=== PATIENT | female | born 1955 | race Hispanic/Latino ===

== ENCOUNTER → 2019-01-23 | Outpatient (CLI) | payer OTHER, MEDICARE | END | disposition home or self-care (01) | LOC: RAH 13:09 | PROVIDERS: ATTEND Family Medicine | DX: I70.203 Unspecified atherosclerosis of native arteries of extremities, bilateral legs (principal) | CPT/HCPCS: 93925 ==

== ENCOUNTER 2019-07-21 14:18 | Inpatient (IN) | payer OTHER, MEDICARE ==
[~2019-07-21] VITALS: Ht 160 cm; Wt 54.5 kg
[2019-07-21 14:56] LABS: BASOPHILS % (AUTO) 0.9 % (0.0-5.0); EOSINOPHILS % (AUTO) 0.3 % (0.0-8.0); HEMATOCRIT 31.5 % (36-48); LYMPHOCYTES % (AUTO) 8.8 % (21.0-51.0); MEAN CORPUSCULAR HEMOGLOBIN 28.7 pg (27.0-33.0); MEAN CORPUSCULAR HGB CONC 33.7 g/dL (32.0-36.0); MEAN CORPUSCULAR VOLUME 85.3 fL (79-99); MONOCYTES % (AUTO) 2.1 % (3.0-13.0); NEUTROPHILS % (AUTO) 87.9 % (40.0-77.0); PLATELET COUNT (AUTO) 423 K/uL (130-400); RED BLOOD CELL COUNT(AUTO) 3.69 MIL/uL (4.00-5.50); RED CELL DISTRIBUTION WIDTH 13.8 % (11.0-15.5)
[2019-07-21 15:05] LABS: INR 0.95 (0.85-1.15); PARTIAL THROMBOPLASTIN TIME 29.7 SEC (26.3-35.5)
[2019-07-21 15:06] LABS: CREATININE 1.2 mg/dL (0.5-1.5); POTASSIUM 3.7 mmol/L (3.5-5.1)
[2019-07-21] MEDS ORDERED: LEVOFLOXACIN 750 MG/D5W 150 ML 150 ML ONE (15:23)
[2019-07-21] MEDS ORDERED: INSULIN HUMULIN R 100 UNIT/ML 3ML ONE (15:49)
[2019-07-21] MEDS ORDERED: SODIUM CHLORIDE 0.9% 1000ML 1,000 ML IV ONE ×2 (15:50→21:55)
[2019-07-21] MEDS ORDERED: HYDRALAZINE HCL 20 MG/ML VIAL IV PRN (16:45)
[2019-07-21] MEDS ORDERED: MORPHINE SULFATE 4 MG/1ML SYG IV PRN (16:45)
[2019-07-21] MEDS ORDERED: MORPHINE SULFATE 2 MG/ML 1ML SYG IV PRN (16:45)
[2019-07-21] MEDS ORDERED: VANCOMYCIN PROTOCOL PER PHARMACY IV PRN (16:45)
[2019-07-21] MEDS: MEROPENEM 500 MG VIAL IV SCH (16:45)
[2019-07-21] MEDS: SODIUM CHLORIDE 0.9% 1000ML 1,000 ML IV SCH (16:45)
[2019-07-21] MEDS: INSULIN LISPRO 100 UNIT/ML 3ML SQ SCH ×2 (17:00→21:00)
[2019-07-21] MEDS: VANCOMYCIN 1GM+NS 250ML 250 ML IV SCH (18:00)
[2019-07-21] MEDS ORDERED: VANCOMYCIN 1GM+NS 250ML 250 ML IV ONE (18:03)
[2019-07-21 18:13] LABS: PHOSPHORUS 3.1 mg/dL (2.5-4.9)
[2019-07-21 18:15] LABS: HEMOGLOBIN A1C 10.4 % (4.0-6.0)
[2019-07-21] MEDS: METOPROLOL TARTRATE 25 MG TAB PO SCH (21:00)
[2019-07-21] MEDS: INSULIN GLARGINE 100 UNITS/ML 10 ML VIAL SQ SCH (21:00)
[2019-07-21] MEDS ORDERED: MEROPENEM 500 MG VIAL ONE (21:55)
[2019-07-21 22:40] VITALS: BP 147/67
--- NOTE | 2019-07-21 22:40 | NUR ---
ADMISSION PT TRANSFERRED FROM ER VIA STRETCHER. PT AWAKE, ALERT AND RESPONSIVE, PT DAUGHTER AT BEDSIDE, PT IS LEGALLY BLIND UNABLE TO SEE. WOUND TO LEFT FOOT OBSERVED AND DRESSED, NO C/O PAIN OR DISCOMFORT AT THIS TIME. PT AND DAUGHTER ORIENTED TO ROOM, RAFAL KATHLEEN DOTS NURSE BUTTON RADIO REPAIRER FREITAS REMOTE IDENTIFIED BY PATIENT, VERBALIZED UNDERSTANDING TO USE CALL BUT FOR ASSISTANCE. BED LEFT IN LOWEST POSITION. Addendum: 07/21/19 at 2305 by NOREEN HAMLIN RN Amended: Links added.
[2019-07-21] MEDS ORDERED: LEVO100T12 PO (23:22)
[2019-07-21] MEDS ORDERED: INSU100V12 SQ (23:22)
[2019-07-21] MEDS ORDERED: ROSU10TA28 PO (23:22)
[2019-07-21] MEDS ORDERED: INSU100V SQ (23:22)
[2019-07-21] MEDS ORDERED: LISI10TA7 PO (23:22)
[2019-07-22] MEDS: MEROPENEM 500 MG VIAL IV SCH ×3 (00:33→16:04)
[2019-07-22] MEDS: SODIUM CHLORIDE 0.9% 1000ML 1,000 ML IV SCH ×3 (02:00→21:31)
[2019-07-22 03:00] VITALS: BP 124/59
[2019-07-22] MEDS: INSULIN LISPRO 100 UNIT/ML 3ML SQ SCH ×7 (07:33→21:00)
[2019-07-22 08:08] VITALS: BP 124/59
--- NOTE | 2019-07-22 08:10 | NUR ---
MET W PATIENT SHAN DE LEON IMPAIRED, AAOX3, VERY SOFT VOICE, A LITTLE DIFFICULT TO UNDERSTAND. STATS LIVES W HER DAUGHTER ARTHUR WHO WILL PROVIDE TRANSPORT, CANNOT REMEMBER ANY PONE RAMIREZ TO VERIFY FACE SHEET ADIVSE HER THAT WITH THE KIND OF INFECTION SHE HAS IF IT LIKEL THAT SHE WILL NEED TO GO TO A FACILITY FOR ABX AND WOUNDCARE- PT STATES UNDERSTANDS AND AGREES. CALL TO DAUGHTER NATASHA, PERSON TO NOTIFY ON FACE SHEET-NO ANSWER Addendum: 07/23/19 at 1604 by MEMO RENTERIA RN Amended: Links added.
[2019-07-22] MEDS: ENOXAPARIN SODIUM 30 MG/0.3 ML SQ SCH (10:08)
[2019-07-22] MEDS: METOPROLOL TARTRATE 25 MG TAB PO SCH ×2 (10:08→21:26)
[2019-07-22] MEDS: FAMOTIDINE/PF 20 MG/2 ML VIAL IV SCH (10:08)
[2019-07-22 11:35] VITALS: BP 123/62
[2019-07-22 14:37] LABS: CREATININE 0.9 mg/dL (0.5-1.5); POTASSIUM 4.2 mmol/L (3.5-5.1)
[2019-07-22] MEDS ORDERED: DIPH,PERTUSS(ACELL),TET VAC/PF 0.5 ML VIAL IM ONE (16:15)
[2019-07-22 16:25] VITALS: BP 115/54
[2019-07-22] MEDS: VANCOMYCIN 1GM+NS 250ML 250 ML IV SCH (16:43)
[2019-07-22 19:32] VITALS: BP 129/63
[2019-07-22] MEDS: ATORVASTATIN CALCIUM 20 MG TABLET PO SCH (21:26)
[2019-07-22] MEDS: INSULIN GLARGINE 100 UNITS/ML 10 ML VIAL SQ SCH (21:31)
[2019-07-22 23:16] VITALS: BP 132/61
[2019-07-23] MEDS: MEROPENEM 500 MG VIAL IV SCH ×3 (01:16→18:19)
[2019-07-23 03:41] VITALS: BP 115/56
[2019-07-23 05:15] LABS: BASOPHILS % (AUTO) 0.9 % (0.0-5.0); EOSINOPHILS % (AUTO) 1.2 % (0.0-8.0); HEMATOCRIT 25.4 % (36-48); LYMPHOCYTES % (AUTO) 23.5 % (21.0-51.0); MEAN CORPUSCULAR HEMOGLOBIN 29.1 pg (27.0-33.0); MEAN CORPUSCULAR HGB CONC 33.6 g/dL (32.0-36.0); MEAN CORPUSCULAR VOLUME 86.6 fL (79-99); MONOCYTES % (AUTO) 7.8 % (3.0-13.0); NEUTROPHILS % (AUTO) 66.6 % (40.0-77.0); PLATELET COUNT (AUTO) 314 K/uL (130-400); RED BLOOD CELL COUNT(AUTO) 2.94 MIL/uL (4.00-5.50); RED CELL DISTRIBUTION WIDTH 14.1 % (11.0-15.5); WHITE BLOOD COUNT (AUTO) 12.8 K/uL (4.8-10.8)
[2019-07-23 05:35] LABS: ALBUMIN 2.1 g/dL (3.5-5.0); BILIRUBIN,TOTAL 0.1 mg/dL (0.2-1.0); POTASSIUM 3.8 mmol/L (3.5-5.1); TOTAL PROTEIN, SERUM 6.9 g/dL (6.0-8.3)
[2019-07-23] MEDS: LEVOTHYROXINE 100 MCG TABLET PO SCH ×2 (06:50→12:08)
[2019-07-23] MEDS: INSULIN LISPRO 100 UNIT/ML 3ML SQ SCH ×7 (07:30→21:08)
[2019-07-23 07:37] VITALS: BP 105/59
[2019-07-23] MEDS: SODIUM CHLORIDE 0.9% 1000ML 1,000 ML IV SCH (08:45)
[2019-07-23] MEDS: FAMOTIDINE/PF 20 MG/2 ML VIAL IV SCH (09:12)
[2019-07-23] MEDS ORDERED: IOHEXOL-350 50ML VIAL IV ONE (09:28)
[2019-07-23] MEDS ORDERED: IOHEXOL-350 75 ML VIAL IV ONE (09:29)
[2019-07-23 11:32] VITALS: BP 114/54
[2019-07-23] MEDS: LISINOPRIL 10 MG TABLET PO SCH (12:08)
[2019-07-23] MEDS: METOPROLOL TARTRATE 25 MG TAB PO SCH ×2 (12:08→21:06)
[2019-07-23] MEDS: ENOXAPARIN SODIUM 30 MG/0.3 ML SQ SCH (12:09)
[2019-07-23 15:54] VITALS: BP 141/73
--- NOTE | 2019-07-23 16:04 | NUR ---
REFERRAL REVIEWED SPOKE TO PT AGAIN ABOUT PLACEMENT, WOULD LIKE DAUGHTER TO MAKE DECISION, CALL TO BOTH DAUGHTERS, NO ANSWER, LEFT MESSAGE WITH ARTHUR, AWAITING CALL BACK CALL TO DAUGHTER ON THE PATIENTS PHONE, DECIDED ON FAMILY REQUESTING VAN RODRIGUEZ INITIATED AND CALL STEPHANIE AT [facility] Addendum: 07/23/19 at 1620 by MEMO RENTERIA RN CM Amended: Links added.
--- NOTE | 2019-07-23 16:30 | NUR ---
PAGED DR WOLFE THRU ANSWERING SERVICE REGARDING CT ANGIO W/RUNOFF RESULT AND TO LET HIM KNOW DR ORTIZ CANCELLED TMA FOR TOMORROW DUE TO ABDNORMAL CT ANGIO . PENDING CALL BACK
--- NOTE | 2019-07-23 17:05 | NUR ---
REFERRAL SENT AND JUNIOR MET W PATIENT, ALL INFO TO DATE INCLUDING PASSR GIVEN TO JUNIOR. JUNIOR STATES WILL AWAIT TILL AFTER INTERVENTION ON FOOT
[2019-07-23] MEDS: VANCOMYCIN 1GM+NS 250ML 250 ML IV SCH (18:14)
--- NOTE | 2019-07-23 18:52 | NUR ---
CALL BACK FROM DR WOLFE INFORMED HIM OF CTA RESULTS .PER MD TO NPO AFTER MIDNIGHT IN CASE FURTHER TESTING .ALSO LET HIM KNOW TMA WITH VENAGAS CANCELLED UNTIL CARDIAC WORKUP
[2019-07-23 19:32] VITALS: BP 143/72
[2019-07-23] MEDS: ATORVASTATIN CALCIUM 20 MG TABLET PO SCH (21:06)
[2019-07-23] MEDS: INSULIN GLARGINE 100 UNITS/ML 10 ML VIAL SQ SCH (21:08)
[2019-07-23 23:14] VITALS: BP 144/68
[2019-07-24] MEDS: SODIUM CHLORIDE 0.9% 1000ML 1,000 ML IV SCH (01:32)
[2019-07-24] MEDS: MEROPENEM 500 MG VIAL IV SCH ×3 (01:33→16:05)
[2019-07-24 04:04] VITALS: BP 112/55
[2019-07-24 05:21] LABS: BASOPHILS % (AUTO) 0.8 % (0.0-5.0); EOSINOPHILS % (AUTO) 2.1 % (0.0-8.0); HEMATOCRIT 26.2 % (36-48); LYMPHOCYTES % (AUTO) 26.2 % (21.0-51.0); MEAN CORPUSCULAR HEMOGLOBIN 28.2 pg (27.0-33.0); MEAN CORPUSCULAR HGB CONC 33.2 g/dL (32.0-36.0); MEAN CORPUSCULAR VOLUME 85.1 fL (79-99); MONOCYTES % (AUTO) 8.5 % (3.0-13.0); NEUTROPHILS % (AUTO) 62.4 % (40.0-77.0); PLATELET COUNT (AUTO) 357 K/uL (130-400); RED BLOOD CELL COUNT(AUTO) 3.07 MIL/uL (4.00-5.50); WHITE BLOOD COUNT (AUTO) 11.9 K/uL (4.8-10.8)
[2019-07-24 05:49] LABS: POTASSIUM 3.5 mmol/L (3.5-5.1)
--- NOTE | 2019-07-24 06:19 | NUR ---
paged paged Dr. Tavarez for hypokalemia protocol order due to potassium of 3.5. pending call back.
[2019-07-24] MEDS: INSULIN LISPRO 100 UNIT/ML 3ML SQ SCH ×4 (06:21→17:07)
[2019-07-24 08:00] VITALS: BP 103/57
--- NOTE | 2019-07-24 08:00 | NUR ---
DR SANDOVAL VISITED WITH PATIENT. POC DISCUSSED. ANGIOGRAM TO BE SCHEDULED ON 07/27.
--- NOTE | 2019-07-24 08:30 | NUR ---
DR ORTIZ CALLED BACK. SX CANCELLED FOR TODAY. WAIT ON ANGIOGRAM RESULTS TO RE-SCHEDULE SX.
[2019-07-24] MEDS: ENOXAPARIN SODIUM 30 MG/0.3 ML SQ SCH (09:20)
[2019-07-24] MEDS: METOPROLOL TARTRATE 25 MG TAB PO SCH ×2 (09:20→20:07)
[2019-07-24] MEDS: LISINOPRIL 10 MG TABLET PO SCH (09:20)
[2019-07-24] MEDS: FAMOTIDINE/PF 20 MG/2 ML VIAL IV SCH (09:20)
[2019-07-24 12:00] VITALS: BP 101/52
[2019-07-24] MEDS: INSULIN HUMULIN R 100 UNIT/ML 3ML SQ SCH ×3 (12:22→21:09)
[2019-07-24 16:00] VITALS: BP 142/69
[2019-07-24] MEDS: VANCOMYCIN 1GM+NS 250ML 250 ML IV SCH (17:03)
[2019-07-24] MEDS ORDERED: LIDOCAINE HCL-MPF 1% 2ML VIAL IV PRN (19:00)
[2019-07-24] MEDS ORDERED: POTASSIUM CHLORIDE 20MEQ/100ML 100 ML IV PRN (19:00)
[2019-07-24] MEDS ORDERED: POTASSIUM CHLORIDE 10% ELIXIR 20 MEQ/15 ML UDCUP PO PRN (19:00)
[2019-07-24 19:34] VITALS: BP 141/62
[2019-07-24] MEDS: ATORVASTATIN CALCIUM 20 MG TABLET PO SCH (20:07)
[2019-07-24] MEDS: POTASSIUM CHLORIDE 20 MEQ ERTAB PO PRN (20:07)
[2019-07-24] MEDS: INSULIN GLARGINE 100 UNITS/ML 10 ML VIAL SQ SCH (21:08)
--- NOTE | 2019-07-24 21:54 | NUR ---
wound care betadine cast applied on left great toe after cleaning with saline and 4 x 4's. Left toe necrotic and sorrounding area on the rest of toes is black, hard, and odorous. Patient not in pain. Able to tolerate dressing change.
--- NOTE | 2019-07-24 23:30 | NUR ---
MD catina Clark paged for high temperature of patient of 100.32, blood pressure of 107/43, and suspect of sepsis. She ordered urine culture, blood culture x 1, lactated ringer bolus, and acetaminophen 650 mg prn for fever.
[2019-07-24] MEDS ORDERED: ACETAMINOPHEN 325 MG TAB PO PRN (23:45)
[2019-07-25] VITALS (7 sets, daily range): BP systolic 107–149; BP diastolic 43–72
[2019-07-25] MEDS ORDERED: LACTATED RINGERS 1000ML 1,000 ML IV ONE (00:14)
[2019-07-25] MEDS ORDERED: ACETAMINOPHEN 325 MG TAB ONE (00:14)
[2019-07-25] MEDS: POTASSIUM CHLORIDE 20 MEQ ERTAB PO PRN (00:16)
[2019-07-25] MEDS: MEROPENEM 500 MG VIAL IV SCH ×3 (00:17→16:46)
--- NOTE | 2019-07-25 01:16 | NUR ---
Hospitalist paged Informed Domonique Collin about patient's lactic acid level of 1.6, her temperature of 99.6, and current bolusing. pending urine and blood culture results
[2019-07-25 05:19] LABS: BASOPHILS % (AUTO) 0.7 % (0.0-5.0); EOSINOPHILS % (AUTO) 2.2 % (0.0-8.0); HEMATOCRIT 24.3 % (36-48); LYMPHOCYTES % (AUTO) 28.1 % (21.0-51.0); MEAN CORPUSCULAR HEMOGLOBIN 28.6 pg (27.0-33.0); MEAN CORPUSCULAR HGB CONC 33.8 g/dL (32.0-36.0); MEAN CORPUSCULAR VOLUME 84.7 fL (79-99); MONOCYTES % (AUTO) 9.3 % (3.0-13.0); NEUTROPHILS % (AUTO) 59.7 % (40.0-77.0); PLATELET COUNT (AUTO) 339 K/uL (130-400); POTASSIUM 3.7 mmol/L (3.5-5.1); RED BLOOD CELL COUNT(AUTO) 2.86 MIL/uL (4.00-5.50); RED CELL DISTRIBUTION WIDTH 13.7 % (11.0-15.5); WHITE BLOOD COUNT (AUTO) 12.6 K/uL (4.8-10.8)
[2019-07-25] MEDS: LEVOTHYROXINE 100 MCG TABLET PO SCH (06:10)
[2019-07-25] MEDS: INSULIN HUMULIN R 100 UNIT/ML 3ML SQ SCH ×4 (06:11→20:53)
[2019-07-25] MEDS: LACTATED RINGERS 1000ML 1,000 ML IV SCH ×2 (06:25→13:05)
[2019-07-25] MEDS: INSULIN LISPRO 100 UNIT/ML 3ML SQ SCH ×3 (08:10→16:49)
[2019-07-25] MEDS: METOPROLOL TARTRATE 25 MG TAB PO SCH ×2 (09:27→20:51)
[2019-07-25] MEDS: LISINOPRIL 10 MG TABLET PO SCH (09:27)
[2019-07-25] MEDS: FAMOTIDINE/PF 20 MG/2 ML VIAL IV SCH (09:27)
[2019-07-25] MEDS: ASPIRIN 81MG TAB.CHEW PO SCH (09:27)
[2019-07-25] MEDS: ENOXAPARIN SODIUM 30 MG/0.3 ML SQ SCH (09:28)
[2019-07-25] MEDS: VANCOMYCIN 1GM+NS 250ML 250 ML IV SCH (20:50)
[2019-07-25] MEDS: ATORVASTATIN CALCIUM 20 MG TABLET PO SCH (20:51)
[2019-07-25] MEDS: INSULIN GLARGINE 100 UNITS/ML 10 ML VIAL SQ SCH (20:52)
[2019-07-26] MEDS: MEROPENEM 500 MG VIAL IV SCH ×3 (01:26→17:01)
[2019-07-26 03:00] VITALS: BP 141/65
[2019-07-26 05:17] LABS: BASOPHILS % (AUTO) 0.5 % (0.0-5.0); EOSINOPHILS % (AUTO) 2.4 % (0.0-8.0); HEMATOCRIT 24.1 % (36-48); LYMPHOCYTES % (AUTO) 26.3 % (21.0-51.0); MEAN CORPUSCULAR HEMOGLOBIN 29.1 pg (27.0-33.0); MEAN CORPUSCULAR HGB CONC 34.6 g/dL (32.0-36.0); MEAN CORPUSCULAR VOLUME 84.2 fL (79-99); MONOCYTES % (AUTO) 9.1 % (3.0-13.0); NEUTROPHILS % (AUTO) 61.7 % (40.0-77.0); PLATELET COUNT (AUTO) 347 K/uL (130-400); RED BLOOD CELL COUNT(AUTO) 2.86 MIL/uL (4.00-5.50); WHITE BLOOD COUNT (AUTO) 12.9 K/uL (4.8-10.8)
[2019-07-26 05:33] LABS: CREATININE 0.8 mg/dL (0.5-1.5); POTASSIUM 3.6 mmol/L (3.5-5.1)
[2019-07-26] MEDS: LEVOTHYROXINE 100 MCG TABLET PO SCH (06:45)
[2019-07-26] MEDS: INSULIN HUMULIN R 100 UNIT/ML 3ML SQ SCH ×4 (06:46→22:16)
[2019-07-26] MEDS: INSULIN LISPRO 100 UNIT/ML 3ML SQ SCH ×3 (06:46→17:09)
[2019-07-26 08:00] VITALS: BP 113/56
[2019-07-26] MEDS: LISINOPRIL 10 MG TABLET PO SCH (09:37)
[2019-07-26] MEDS: ASPIRIN 81MG TAB.CHEW PO SCH (09:37)
[2019-07-26] MEDS: METOPROLOL TARTRATE 25 MG TAB PO SCH ×2 (09:37→22:14)
[2019-07-26] MEDS: FAMOTIDINE/PF 20 MG/2 ML VIAL IV SCH (09:38)
[2019-07-26] MEDS: ENOXAPARIN SODIUM 30 MG/0.3 ML SQ SCH (09:38)
[2019-07-26] MEDS: VANCOMYCIN 1GM+NS 250ML 250 ML IV SCH ×2 (09:38→22:14)
[2019-07-26 11:45] VITALS: BP 101/52
[2019-07-26 16:00] VITALS: BP 130/64
[2019-07-26] MEDS ORDERED: ACETAMINOPHEN 325 MG TAB PO PRN (16:00)
--- NOTE | 2019-07-26 19:49 | NUR ---
WOUND CARE DONE BETADINE CAST APPLIED TO LEFT FOOT. PATIENT TOLERATED WELL.
[2019-07-26 19:58] VITALS: BP 116/62
[2019-07-26] MEDS: ATORVASTATIN CALCIUM 20 MG TABLET PO SCH (22:14)
[2019-07-26] MEDS: INSULIN GLARGINE 100 UNITS/ML 10 ML VIAL SQ SCH (22:15)
[2019-07-26 23:37] VITALS: BP 121/56
[2019-07-27] VITALS (13 sets, daily range): BP systolic 78–125; BP diastolic 39–71
[2019-07-27] MEDS: MEROPENEM 500 MG VIAL IV SCH ×3 (01:17→18:11)
[2019-07-27 06:05] LABS: BASOPHILS % (AUTO) 1.1 % (0.0-5.0); EOSINOPHILS % (AUTO) 2.9 % (0.0-8.0); HEMATOCRIT 26.7 % (36-48); LYMPHOCYTES % (AUTO) 20.4 % (21.0-51.0); MEAN CORPUSCULAR HEMOGLOBIN 29.5 pg (27.0-33.0); MEAN CORPUSCULAR HGB CONC 34.4 g/dL (32.0-36.0); MEAN CORPUSCULAR VOLUME 85.6 fL (79-99); MONOCYTES % (AUTO) 10.2 % (3.0-13.0); NEUTROPHILS % (AUTO) 65.4 % (40.0-77.0); PLATELET COUNT (AUTO) 344 K/uL (130-400); RED BLOOD CELL COUNT(AUTO) 3.12 MIL/uL (4.00-5.50); WHITE BLOOD COUNT (AUTO) 14.3 K/uL (4.8-10.8)
[2019-07-27 06:13] LABS: CREATININE 0.9 mg/dL (0.5-1.5); PARTIAL THROMBOPLASTIN TIME 28.7 SEC (26.3-35.5); PROTHROMBIN TIME 10.5 SEC (9.6-11.6)
[2019-07-27] MEDS: LEVOTHYROXINE 100 MCG TABLET PO SCH (06:34)
[2019-07-27] MEDS: INSULIN HUMULIN R 100 UNIT/ML 3ML SQ SCH ×4 (06:34→21:00)
[2019-07-27] MEDS: INSULIN LISPRO 100 UNIT/ML 3ML SQ SCH ×3 (06:34→17:00)
[2019-07-27] MEDS: ASPIRIN 81MG TAB.CHEW PO SCH (09:00)
[2019-07-27] MEDS: METOPROLOL TARTRATE 25 MG TAB PO SCH ×2 (09:00→21:49)
[2019-07-27] MEDS: LISINOPRIL 10 MG TABLET PO SCH (09:00)
[2019-07-27] MEDS: FAMOTIDINE/PF 20 MG/2 ML VIAL IV SCH (09:00)
[2019-07-27] MEDS: VANCOMYCIN 1GM+NS 250ML 250 ML IV SCH ×2 (09:26→21:48)
[2019-07-27] MEDS ORDERED: HEPARIN SODIUM 1000UNIT/ML 10ML VIAL ONE ×2 (13:42→16:12)
[2019-07-27] MEDS ORDERED: BIVALIRUDIN 250 MG/VIAL IV ONE (13:42)
[2019-07-27] MEDS ORDERED: FENTANYL CITRATE PF 50 MCG/1 ML 2ML VIAL ONE (13:43)
[2019-07-27] MEDS ORDERED: IODIXANOL 320 MG/ML 100 ML VIAL ONE (13:43)
[2019-07-27] MEDS ORDERED: MIDAZOLAM HCL 1 MG/ML 2ML VIAL ONE (13:43)
[2019-07-27] MEDS ORDERED: LIDOCAINE HCL 2% 20ML ONE (13:43)
[2019-07-27] MEDS ORDERED: NITROGLYCERIN 5 MG/ML 10 ML VIAL IV ONE (13:43)
--- NOTE | 2019-07-27 14:27 | NUR ---
FOLLOWED UP WITH REFERRAL- WILL SEND UPDATES TODAY , FOR ANGIOGRAM
[2019-07-27] MEDS ORDERED: NICARDIPINE HCL 25 MG/10 ML ML IV ONE (14:32)
[2019-07-27] MEDS ORDERED: CLOPIDOGREL BISULFATE 300 MG TAB ONE (16:19)
[2019-07-27] MEDS ORDERED: ASPIRIN 325MG EC TAB 325 MG TABLET.DR PO ONE (16:20)
--- NOTE | 2019-07-27 17:44 | NUR ---
Nutrition Intervention: Nutrition screen based on LOS x 6 days. Pt. not in room during RD visit- out for procedure. Pt. on 75gm CCD Low Lactose Heart healthy diet with good p.o.intake, as noted in EMR. Labs reviewed(Alb 2.1, HgbA1c 10.4%). LBM: 07/25/19. SR-18, left great toe gangrene. Recommendations: 1) Rec. 30ml ProMod TID with meals. 2) Continue to monitor pt's nutritional status. 3) Consult RD as nutrition concerns arise. Addendum: 07/27/19 at [address] Amended: Links added.
[2019-07-27] MEDS: ATORVASTATIN CALCIUM 20 MG TABLET PO SCH (21:49)
[2019-07-27] MEDS: INSULIN GLARGINE 100 UNITS/ML 10 ML VIAL SQ SCH (21:50)
[2019-07-28] MEDS: MEROPENEM 500 MG VIAL IV SCH ×3 (01:02→16:39)
[2019-07-28 03:00] VITALS: BP 113/56
[2019-07-28] MEDS: LEVOTHYROXINE 100 MCG TABLET PO SCH (06:25)
[2019-07-28] MEDS: INSULIN LISPRO 100 UNIT/ML 3ML SQ SCH ×3 (06:26→16:46)
[2019-07-28] MEDS: INSULIN HUMULIN R 100 UNIT/ML 3ML SQ SCH ×4 (06:27→21:40)
[2019-07-28 07:15] LABS: HEMATOCRIT 22.4 % (36-48); MEAN CORPUSCULAR HEMOGLOBIN 28.3 pg (27.0-33.0); MEAN CORPUSCULAR HGB CONC 33.3 g/dL (32.0-36.0); PLATELET COUNT (AUTO) 332 K/uL (130-400); RED BLOOD CELL COUNT(AUTO) 2.64 MIL/uL (4.00-5.50); RED CELL DISTRIBUTION WIDTH 14.3 % (11.0-15.5)
[2019-07-28 07:33] LABS: POTASSIUM 3.7 mmol/L (3.5-5.1)
[2019-07-28 08:00] VITALS: BP 102/53
[2019-07-28] MEDS: ASPIRIN 81MG TAB.CHEW PO SCH (08:54)
[2019-07-28] MEDS: METOPROLOL TARTRATE 25 MG TAB PO SCH ×2 (08:54→21:36)
[2019-07-28] MEDS: FAMOTIDINE/PF 20 MG/2 ML VIAL IV SCH (08:54)
[2019-07-28] MEDS: LISINOPRIL 10 MG TABLET PO SCH (08:54)
[2019-07-28] MEDS: CLOPIDOGREL BISULFATE 75 MG TAB PO SCH (08:54)
--- NOTE | 2019-07-28 09:26 | NUR ---
paged dr. goncalves to notify him that the angioplasty was done.
[2019-07-28 12:00] VITALS: BP 110/56
--- NOTE | 2019-07-28 15:39 | NUR ---
SPOKE TO DR. ORTIZ ON THE PHONE AND NOTIFIED HIM OF THE ANGIOPLASTY. HE VERBALIZED THAT HE WILL TALK TO THE PATIENT AND THE FAMILY ABOUT THE POSSIBLE TMA ON MONDAY 07/30.
[2019-07-28 16:00] VITALS: BP 102/53
[2019-07-28 19:56] VITALS: BP 95/45
[2019-07-28] MEDS: ATORVASTATIN CALCIUM 20 MG TABLET PO SCH (21:36)
[2019-07-28] MEDS: INSULIN GLARGINE 100 UNITS/ML 10 ML VIAL SQ SCH (21:40)
[2019-07-28 23:19] VITALS: BP 108/48
[2019-07-29] MEDS: MEROPENEM 500 MG VIAL IV SCH ×3 (01:56→18:22)
[2019-07-29 03:35] VITALS: BP 114/52
[2019-07-29] MEDS: INSULIN LISPRO 100 UNIT/ML 3ML SQ SCH ×3 (07:30→18:19)
[2019-07-29] MEDS: INSULIN HUMULIN R 100 UNIT/ML 3ML SQ SCH ×4 (07:30→21:53)
[2019-07-29 08:16] VITALS: BP 111/48
[2019-07-29] MEDS: CLOPIDOGREL BISULFATE 75 MG TAB PO SCH (09:00)
[2019-07-29] MEDS ORDERED: MORPHINE SULFATE 2 MG/ML 1ML SYG IV PRN (09:30)
[2019-07-29] MEDS ORDERED: MORPHINE SULFATE 4 MG/1ML SYG IV PRN (09:30)
[2019-07-29] MEDS: LEVOTHYROXINE 100 MCG TABLET PO SCH (11:16)
[2019-07-29] MEDS: LISINOPRIL 10 MG TABLET PO SCH (11:17)
[2019-07-29] MEDS: ASPIRIN 81MG TAB.CHEW PO SCH (11:18)
[2019-07-29] MEDS: METOPROLOL TARTRATE 25 MG TAB PO SCH (11:18)
[2019-07-29] MEDS: FAMOTIDINE/PF 20 MG/2 ML VIAL IV SCH (11:18)
--- NOTE | 2019-07-29 11:59 | NUR ---
pt with n/v dr. Remigio turpin.
[2019-07-29 12:00] VITALS: BP 103/55
[2019-07-29] MEDS: VANCOMYCIN 1GM+NS 250ML 250 ML IV SCH (14:59)
[2019-07-29] MEDS ORDERED: ONDANSETRON HCL 4 MG/2 ML VIAL ONE (15:04)
--- NOTE | 2019-07-29 16:45 | NUR ---
dr. campbell aware of h/h 6.6.4/19.3 states to transfuse 2u prbcs wit vincentix
[2019-07-29 17:50] VITALS: BP 94/56
[2019-07-29 17:58] LABS: HEMATOCRIT 19.3 % (36-48)
[2019-07-29] MEDS: SODIUM CHLORIDE 0.9% 1000ML 1,000 ML IV SCH (18:22)
[2019-07-29 19:44] VITALS: BP 97/58
[2019-07-29] MEDS ORDERED: FUROSEMIDE 10 MG/ML 2ML VIAL IV SCH (21:15)
[2019-07-29] MEDS: ATORVASTATIN CALCIUM 20 MG TABLET PO SCH (21:51)
[2019-07-29] MEDS: INSULIN GLARGINE 100 UNITS/ML 10 ML VIAL SQ SCH (21:52)
[2019-07-29 23:34] VITALS: BP 98/61
[2019-07-30] VITALS (25 sets, daily range): BP systolic 85–145; BP diastolic 50–78
--- NOTE | 2019-07-30 00:25 | NUR ---
PATIENT S/P 1 UNIT PRBC. POST-TRANSFUSION VITALS: TEMP 98.6, RESP 16, HEART RATE 82, O2 SAT ROOM AIR 96%, B/P 88/54. [employer] CORT[employer] WELL SERVICING RIG OPERATOR WAS PAGED REGARDING LOW B/P, PENDING CALL BACK
--- NOTE | 2019-07-30 01:45 | NUR ---
SOPHIA, EMULSION OPERATOR MADE AWARE OF EPISODES OF LOW B/P AND MOST RECENT B/P OF /. SECOND BAG OF PRBC CURRENTLY TRANSFUSION. EMULSION OPERATOR STATED TO KEEP MONITORING B/P AND TO NOTIFY HER IF PATIENT CONTINUES WITH LOW B/P.
[2019-07-30] MEDS: MEROPENEM 500 MG VIAL IV SCH ×3 (01:47→17:37)
[2019-07-30] MEDS: SODIUM CHLORIDE 0.9% 1000ML 1,000 ML IV SCH ×2 (02:45→17:39)
[2019-07-30] MEDS: VANCOMYCIN 1GM+NS 250ML 250 ML IV SCH ×2 (03:33→17:42)
[2019-07-30 05:18] LABS: HEMATOCRIT 28.6 % (36-48); MEAN CORPUSCULAR HGB CONC 33.8 g/dL (32.0-36.0); MEAN CORPUSCULAR VOLUME 85.9 fL (79-99); PLATELET COUNT (AUTO) 308 K/uL (130-400); RED BLOOD CELL COUNT(AUTO) 3.33 MIL/uL (4.00-5.50); RED CELL DISTRIBUTION WIDTH 13.7 % (11.0-15.5); WHITE BLOOD COUNT (AUTO) 16.1 K/uL (4.8-10.8)
[2019-07-30 05:34] LABS: CREATININE 1.4 mg/dL (0.5-1.5)
[2019-07-30] MEDS: INSULIN LISPRO 100 UNIT/ML 3ML SQ SCH ×3 (06:18→17:00)
[2019-07-30] MEDS: INSULIN HUMULIN R 100 UNIT/ML 3ML SQ SCH ×4 (06:18→21:00)
[2019-07-30] MEDS: LEVOTHYROXINE 100 MCG TABLET PO SCH (06:18)
[2019-07-30] MEDS: FAMOTIDINE/PF 20 MG/2 ML VIAL IV SCH (10:07)
--- NOTE | 2019-07-30 10:55 | NUR ---
1050- per CORAZON Guo-patient is schedule for Left Transmetatarsal Amputation today.Will Hold PT Re-evaluation today.Will notify Dr.Cesar Flood,regarding patient's procedure today. Addendum: 07/30/19 at 1103 by STEVAN BAKER, PT PT Amended: Links added.
[2019-07-30] MEDS ORDERED: BUPIVACAINE/PF 0.5% 30ML VIAL ONE (11:41)
[2019-07-30] MEDS ORDERED: LIDOCAINE HCL 1% 20 ML VIAL ONE (11:41)
[2019-07-30] MEDS: ONDANSETRON HCL 4 MG/2 ML VIAL IVP PRN (12:38)
--- NOTE | 2019-07-30 13:00 | NUR ---
DISCHARGE PLANNING CASE DISCUSSED WITH DR. AYALA- PT WILL NEED PICC LINE FOR AM AND PT/INR. PLAN FOR DC TO FACILITY FOR COMPLETION OF IV ABX WHEN CLEARED BY DR. AMIN. ORDER FOR PICC FOR AM GIVEN
[2019-07-30] MEDS ORDERED: LIDOCAINE PF 2% 5ML ABBOJECT ONE (13:03)
[2019-07-30] MEDS ORDERED: PROPOFOL 10 MG/ML 20ML VIAL IV ONE ×2 (13:03)
[2019-07-30] MEDS ORDERED: EPHEDRINE SULFATE 50 MG/ML AMPULE ONE (13:26)
--- NOTE | 2019-07-30 14:42 | NUR ---
RETURNED FROM OR S/P LEFT TMA BY DR. ORTIZ. SLEEPY, BUT AROUSABLE. VSS. LEFT FOOT SURGICAL SITE ACEWRAPPED, NO DRAINAGE NOTED.
--- NOTE | 2019-07-30 20:25 | NUR ---
SCHEDULED INSULIN AT 1700 WAS NOT GIVEN. PT WAS FRESH POST OP, AND DID NOT EAT. BGL WAS 142
[2019-07-30] MEDS: ATORVASTATIN CALCIUM 20 MG TABLET PO SCH (22:35)
[2019-07-30] MEDS: INSULIN GLARGINE 100 UNITS/ML 10 ML VIAL SQ SCH (22:39)
[2019-07-31] VITALS: BP 145/73
[2019-07-31] MEDS: SODIUM CHLORIDE 0.9% 1000ML 1,000 ML IV SCH (02:03)
[2019-07-31] MEDS: MEROPENEM 500 MG VIAL IV SCH ×3 (02:05→17:21)
[2019-07-31 04:00] VITALS: BP 135/60
[2019-07-31] MEDS ORDERED: VANCOMYCIN PROTOCOL PER PHARMACY IV PRN (05:00)
[2019-07-31] MEDS: VANCOMYCIN 1GM+NS 250ML 250 ML IV SCH ×3 (05:03→21:53)
[2019-07-31] MEDS ORDERED: MAG HYDROX/AL HYDROX/SIMETH ES 30 ML SUSP UDCUP ONE (05:48)
[2019-07-31 05:51] LABS: HEMATOCRIT 32.8 % (36-48); MEAN CORPUSCULAR HGB CONC 33.2 g/dL (32.0-36.0); MEAN CORPUSCULAR VOLUME 87.3 fL (79-99); NUCLEATED RED BLOOD CELLS 0.1 % (0.0-0.19); PLATELET COUNT (AUTO) 336 K/uL (130-400); RED BLOOD CELL COUNT(AUTO) 3.76 MIL/uL (4.00-5.50); RED CELL DISTRIBUTION WIDTH 14.2 % (11.0-15.5); WHITE BLOOD COUNT (AUTO) 20.6 K/uL (4.8-10.8)
[2019-07-31 05:58] LABS: POTASSIUM 4.1 mmol/L (3.5-5.1)
[2019-07-31 06:03] LABS: INR 1.06 (0.85-1.15); PROTHROMBIN TIME 11.1 SEC (9.6-11.6)
[2019-07-31] MEDS: INSULIN HUMULIN R 100 UNIT/ML 3ML SQ SCH ×4 (06:45→21:00)
[2019-07-31 07:00] VITALS: BP 124/64
[2019-07-31] MEDS: INSULIN LISPRO 100 UNIT/ML 3ML SQ SCH ×3 (08:21→17:21)
[2019-07-31] MEDS: LEVOTHYROXINE 100 MCG TABLET PO SCH (08:53)
[2019-07-31] MEDS: FAMOTIDINE/PF 20 MG/2 ML VIAL IV SCH (08:54)
[2019-07-31 11:00] VITALS: BP 141/73
[2019-07-31] MEDS: ASPIRIN 81 MG EC TAB PO SCH (12:14)
[2019-07-31] MEDS: ONDANSETRON HCL 4 MG/2 ML VIAL IVP PRN (12:14)
[2019-07-31 16:00] VITALS: BP 108/63
--- NOTE | 2019-07-31 16:30 | NUR ---
FAXED MORE INFO TO MICHAEL- THE ORDER FOR CLEARANCE FOR DC FROM [facility] AND THE DRESSING CHANGE ORDERS PATIENT IS READY FRO DISCHARGE FROM CM POINT OF VIEW. WAITING ON INSURANCE, WHO WILL TAKE UP TO THREE DAYS FROM MD'S CLEARANCE TO AUTHORIZE A SNF. PT HAS PICC AND NEED FOR MORE WEEKS OF ABX. CM TO FOLLOW
[2019-07-31 19:05] VITALS: BP 102/56
[2019-07-31] MEDS: ATORVASTATIN CALCIUM 20 MG TABLET PO SCH (21:49)
[2019-07-31] MEDS: INSULIN GLARGINE 100 UNITS/ML 10 ML VIAL SQ SCH (21:51)
[2019-08-01] VITALS (7 sets, daily range): BP systolic 119–147; BP diastolic 64–77
[2019-08-01] MEDS: MEROPENEM 500 MG VIAL IV SCH ×3 (01:00→17:23)
[2019-08-01 05:21] LABS: HEMATOCRIT 25.1 % (36-48); MEAN CORPUSCULAR HEMOGLOBIN 28.7 pg (27.0-33.0); MEAN CORPUSCULAR HGB CONC 33.2 g/dL (32.0-36.0); MEAN CORPUSCULAR VOLUME 86.6 fL (79-99); NUCLEATED RED BLOOD CELLS 0.1 % (0.0-0.19); PLATELET COUNT (AUTO) 319 K/uL (130-400); RED CELL DISTRIBUTION WIDTH 14.3 % (11.0-15.5); WHITE BLOOD COUNT (AUTO) 13.1 K/uL (4.8-10.8)
[2019-08-01 05:46] LABS: CREATININE 0.8 mg/dL (0.5-1.5); POTASSIUM 3.4 mmol/L (3.5-5.1)
[2019-08-01] MEDS: INSULIN LISPRO 100 UNIT/ML 3ML SQ SCH ×3 (07:00→17:00)
[2019-08-01] MEDS: INSULIN HUMULIN R 100 UNIT/ML 3ML SQ SCH ×4 (07:00→21:00)
[2019-08-01] MEDS: LEVOTHYROXINE 100 MCG TABLET PO SCH (07:00)
[2019-08-01] MEDS: CLOPIDOGREL BISULFATE 75 MG TAB PO SCH (09:00)
[2019-08-01] MEDS: FAMOTIDINE/PF 20 MG/2 ML VIAL IV SCH (09:08)
[2019-08-01] MEDS: ASPIRIN 81 MG EC TAB PO SCH (09:08)
[2019-08-01] MEDS ORDERED: COMPOUND IV REFRIGERATED 1 EACH IVSOLN MISC PRN (10:15)
--- NOTE | 2019-08-01 14:50 | NUR ---
[facility]LL F/U MINH spoke to [facility] with [facility]. States pt is still pending authorization. CM to f/u on Saturday.
[2019-08-01] MEDS ORDERED: CLOPIDOGREL BISULFATE 75 MG TAB PO SCH (17:00)
[2019-08-01] MEDS ORDERED: CLOPIDOGREL BISULFATE 75 MG TAB ONE (17:20)
[2019-08-01] MEDS: ATORVASTATIN CALCIUM 20 MG TABLET PO SCH (22:28)
[2019-08-01] MEDS: VANCOMYCIN 750MG + NS 250 ML IV SCH ×2 (22:29)
[2019-08-01] MEDS: INSULIN GLARGINE 100 UNITS/ML 10 ML VIAL SQ SCH ×2 (22:30→22:36)
[2019-08-02] MEDS: MEROPENEM 500 MG VIAL IV SCH ×3 (00:43→17:41)
[2019-08-02 03:40] VITALS: BP 120/70
[2019-08-02 05:21] LABS: BASOPHILS % (AUTO) 0.8 % (0.0-5.0); EOSINOPHILS % (AUTO) 2.4 % (0.0-8.0); HEMATOCRIT 27.3 % (36-48); LYMPHOCYTES % (AUTO) 19.5 % (21.0-51.0); MEAN CORPUSCULAR HEMOGLOBIN 29.7 pg (27.0-33.0); MEAN CORPUSCULAR HGB CONC 33.6 g/dL (32.0-36.0); MEAN CORPUSCULAR VOLUME 88.3 fL (79-99); MONOCYTES % (AUTO) 7.8 % (3.0-13.0); NEUTROPHILS % (AUTO) 69.5 % (40.0-77.0); PLATELET COUNT (AUTO) 360 K/uL (130-400); RED CELL DISTRIBUTION WIDTH 14.5 % (11.0-15.5); WHITE BLOOD COUNT (AUTO) 12.7 K/uL (4.8-10.8)
[2019-08-02 05:33] LABS: CREATININE 0.9 mg/dL (0.5-1.5); POTASSIUM 3.8 mmol/L (3.5-5.1)
[2019-08-02] MEDS: LEVOTHYROXINE 100 MCG TABLET PO SCH (06:22)
[2019-08-02] MEDS: INSULIN LISPRO 100 UNIT/ML 3ML SQ SCH ×3 (06:22→17:41)
[2019-08-02] MEDS: INSULIN HUMULIN R 100 UNIT/ML 3ML SQ SCH ×4 (06:22→21:58)
[2019-08-02 07:00] VITALS: BP 117/68
[2019-08-02] MEDS: ASPIRIN 81 MG EC TAB PO SCH (09:04)
[2019-08-02] MEDS: FAMOTIDINE/PF 20 MG/2 ML VIAL IV SCH (09:04)
[2019-08-02] MEDS: VANCOMYCIN 750MG + NS 250 ML IV SCH ×4 (09:04→22:12)
[2019-08-02 11:00] VITALS: BP 131/76
[2019-08-02] MEDS ORDERED: CLOPIDOGREL BISULFATE 75 MG TAB ONE (12:46)
[2019-08-02] MEDS: CLOPIDOGREL BISULFATE 75 MG TAB PO SCH (12:47)
[2019-08-02 16:00] VITALS: BP 140/68
--- NOTE | 2019-08-02 17:26 | NUR ---
call JONY STICKER ON to notify him of the rash the patient have on the back armpit and groin and also to notify him of the swelling of the right arm
[2019-08-02 20:00] VITALS: BP 147/75
--- NOTE | 2019-08-02 20:04 | NUR ---
PAGENathalie PLYWOOD STOCK GRADER Allie borrero cutter wet machine to notify her re rt arm swollen,radial pulse palpable.Rt arm elevated on rolled blankets.Good capillary refill.
[2019-08-02] MEDS: ATORVASTATIN CALCIUM 20 MG TABLET PO SCH (22:01)
--- NOTE | 2019-08-02 22:02 | NUR ---
lantus lantus 10 unit subcut given
--- NOTE | 2019-08-02 23:17 | NUR ---
JANAE borrero rest room maid called back,informed re rt arm swelling,new order received.
[2019-08-03] MEDS: MEROPENEM 500 MG VIAL IV SCH ×3 (00:20→16:32)
[2019-08-03 00:33] VITALS: BP 142/77
[2019-08-03 03:50] VITALS: BP 136/75
--- NOTE | 2019-08-03 04:50 | NUR ---
SOB Pt states she's been sob for 3 days already,she thinks she's having an allergic reaction to something.Yesterday she developed rashes to her back,Vs taken bp 145/85,hr 92,resp 16,02 sat 96 %.Breath sounds clear.Notified Disha borrero Np.Pt states she feels like her throat feels tight.No facial swelling noted.
[2019-08-03] MEDS ORDERED: DiphenhydrAMINE HCL 50 MG/ML VIAL ONE (04:55)
[2019-08-03] MEDS ORDERED: DiphenhydrAMINE HCL 50 MG/ML VIAL IV PRN (05:00)
--- NOTE | 2019-08-03 05:05 | NUR ---
BENADRYL Benadryl given as per Director Government order.
--- NOTE | 2019-08-03 05:15 | NUR ---
MED EFFECT Pt appears calm,denies pain or sob.
[2019-08-03] MEDS: LEVOTHYROXINE 100 MCG TABLET PO SCH (05:34)
[2019-08-03] MEDS: INSULIN HUMULIN R 100 UNIT/ML 3ML SQ SCH ×4 (05:35→21:00)
[2019-08-03] MEDS: INSULIN LISPRO 100 UNIT/ML 3ML SQ SCH ×3 (05:37→16:40)
[2019-08-03] MEDS: FAMOTIDINE/PF 20 MG/2 ML VIAL IV SCH (09:16)
[2019-08-03] MEDS: VANCOMYCIN 750MG + NS 250 ML IV SCH ×2 (09:16)
[2019-08-03] MEDS: ASPIRIN 81 MG EC TAB PO SCH (09:17)
--- NOTE | 2019-08-03 09:30 | NUR ---
LEGALLY BLIND Addendum: 08/03/19 at 2107 by ALFIE MORROW RN RN Amended: Links added.
[2019-08-03] MEDS ORDERED: CLOPIDOGREL BISULFATE 75 MG TAB ONE (12:31)
[2019-08-03] MEDS: CLOPIDOGREL BISULFATE 75 MG TAB PO SCH (12:33)
[2019-08-03] MEDS: IPRATROPIUM/ALBUTEROL SULFATE 3 ML SOLUTION IH SCH ×3 (13:30→23:10)
[2019-08-03] MEDS ORDERED: FUROSEMIDE 10 MG/ML 2ML VIAL IV SCH (13:30)
[2019-08-03] MEDS ORDERED: MAGNESIUM HYDROXIDE 30 ML/UDCUP PO SCH (13:30)
[2019-08-03 16:00] VITALS: BP 125/66
[2019-08-03 19:30] VITALS: BP 158/72
[2019-08-03] MEDS: VANCOMYCIN 500MG+NS 100ML 100 ML IV SCH (21:33)
[2019-08-03] MEDS: ATORVASTATIN CALCIUM 20 MG TABLET PO SCH (21:33)
[2019-08-03] MEDS: ENOXAPARIN SODIUM 60 MG/0.6 ML SQ SCH (21:34)
[2019-08-03] MEDS: INSULIN GLARGINE 100 UNITS/ML 10 ML VIAL SQ SCH (21:41)
[2019-08-04] VITALS (7 sets, daily range): BP systolic 94–155; BP diastolic 59–75
[2019-08-04] MEDS: MEROPENEM 500 MG VIAL IV SCH ×3 (00:20→17:01)
--- NOTE | 2019-08-04 03:54 | NUR ---
STATUS Pt resting comfortable,rt arm swelling subsided now.Pt denies pain or sob.Pt for Picc line insertion this am.Pt legally blind and unalble to sign her consent,states her daughter will come in the morning to sign it.
[2019-08-04] MEDS: INSULIN HUMULIN R 100 UNIT/ML 3ML SQ SCH ×4 (05:26→21:24)
[2019-08-04 06:09] LABS: BASOPHILS % (AUTO) 0.6 % (0.0-5.0); EOSINOPHILS % (AUTO) 3.4 % (0.0-8.0); HEMATOCRIT 29.9 % (36-48); LYMPHOCYTES % (AUTO) 19.7 % (21.0-51.0); MEAN CORPUSCULAR HEMOGLOBIN 29.1 pg (27.0-33.0); MEAN CORPUSCULAR HGB CONC 33.8 g/dL (32.0-36.0); MEAN CORPUSCULAR VOLUME 86.1 fL (79-99); MONOCYTES % (AUTO) 6.9 % (3.0-13.0); NEUTROPHILS % (AUTO) 69.4 % (40.0-77.0); PLATELET COUNT (AUTO) 458 K/uL (130-400); RED BLOOD CELL COUNT(AUTO) 3.47 MIL/uL (4.00-5.50); RED CELL DISTRIBUTION WIDTH 14.1 % (11.0-15.5); WHITE BLOOD COUNT (AUTO) 11.5 K/uL (4.8-10.8)
[2019-08-04] MEDS: LEVOTHYROXINE 100 MCG TABLET PO SCH (06:18)
[2019-08-04 06:19] LABS: INR 1.08 (0.85-1.15); PROTHROMBIN TIME 11.3 SEC (9.6-11.6)
[2019-08-04] MEDS: INSULIN LISPRO 100 UNIT/ML 3ML SQ SCH ×3 (06:21→17:08)
[2019-08-04 06:26] LABS: CREATININE 0.8 mg/dL (0.5-1.5); POTASSIUM 3.4 mmol/L (3.5-5.1)
[2019-08-04] MEDS: POTASSIUM CHLORIDE 20 MEQ ERTAB PO PRN (06:40)
[2019-08-04 06:52] LABS: B-TYPE NATRIURETIC PEPTIDE 589 pg/mL (0-100)
[2019-08-04] MEDS: IPRATROPIUM/ALBUTEROL SULFATE 3 ML SOLUTION IH SCH ×4 (06:55→23:12)
[2019-08-04] MEDS: ENOXAPARIN SODIUM 60 MG/0.6 ML SQ SCH ×2 (09:00→21:11)
[2019-08-04] MEDS: CLOPIDOGREL BISULFATE 75 MG TAB PO SCH (09:00)
[2019-08-04] MEDS: FAMOTIDINE/PF 20 MG/2 ML VIAL IV SCH (09:00)
[2019-08-04] MEDS: ASPIRIN 81 MG EC TAB PO SCH (09:00)
[2019-08-04] MEDS: VANCOMYCIN 500MG+NS 100ML 100 ML IV SCH ×2 (09:07→21:11)
--- NOTE | 2019-08-04 09:30 | NUR ---
PATIENT IS LEGALLY BLIND Addendum: 08/04/19 at 2107 by ALFIE MORROW RN RN Amended: Links added.
--- NOTE | 2019-08-04 16:01 | NUR ---
RD FOLLOW UP NOTE Pt with previous severe PCM;Recommend PAB/Alb Lab draw. Pt tolerating current diet order with no report of GI distress. Fair PO intake at 50% as per Pt. Recommend to continue current diet order. Pt LBM 08/01/19. Pt monitored labs: K 3.4, Glu 161, Ca 8.2, BNP 589. RD to continue to monitor. Please notify RD as additional nutrition concerns arise. Thank you. Addendum: 08/04/19 at [address] Amended: Links added.
--- NOTE | 2019-08-04 20:49 | NUR ---
PICC Picc line nurse here to insert Picc to left upper arm.
[2019-08-04] MEDS: ATORVASTATIN CALCIUM 20 MG TABLET PO SCH (21:11)
[2019-08-04] MEDS: INSULIN GLARGINE 100 UNITS/ML 10 ML VIAL SQ SCH (21:16)
--- NOTE | 2019-08-04 22:21 | NUR ---
OK TO USE Allie John Np,ordered ok to use PICC line now.
[2019-08-05] MEDS: MEROPENEM 500 MG VIAL IV SCH ×2 (00:30→09:44)
[2019-08-05 03:00] VITALS: BP 127/67
[2019-08-05] MEDS: INSULIN HUMULIN R 100 UNIT/ML 3ML SQ SCH ×4 (05:54→21:51)
[2019-08-05] MEDS: IPRATROPIUM/ALBUTEROL SULFATE 3 ML SOLUTION IH SCH ×4 (06:11→23:23)
[2019-08-05] MEDS: LEVOTHYROXINE 100 MCG TABLET PO SCH (06:30)
[2019-08-05] MEDS: INSULIN LISPRO 100 UNIT/ML 3ML SQ SCH ×3 (06:30→17:00)
[2019-08-05 07:00] VITALS: BP 73/65
[2019-08-05] MEDS: CLOPIDOGREL BISULFATE 75 MG TAB PO SCH (09:00)
[2019-08-05] MEDS: FAMOTIDINE/PF 20 MG/2 ML VIAL IV SCH (09:44)
[2019-08-05] MEDS: ASPIRIN 81 MG EC TAB PO SCH (09:45)
[2019-08-05] MEDS: ENOXAPARIN SODIUM 60 MG/0.6 ML SQ SCH ×2 (09:45→21:50)
[2019-08-05 11:00] VITALS: BP 105/63
[2019-08-05 11:07] LABS: EOSINOPHILS % (AUTO) 3.8 % (0.0-8.0); HEMATOCRIT 27.3 % (36-48); LYMPHOCYTES % (AUTO) 25.1 % (21.0-51.0); MEAN CORPUSCULAR HEMOGLOBIN 29.8 pg (27.0-33.0); MEAN CORPUSCULAR HGB CONC 34.2 g/dL (32.0-36.0); MEAN CORPUSCULAR VOLUME 87.3 fL (79-99); MONOCYTES % (AUTO) 8.7 % (3.0-13.0); NEUTROPHILS % (AUTO) 61.4 % (40.0-77.0); NUCLEATED RED BLOOD CELLS 0.1 % (0.0-0.19); PLATELET COUNT (AUTO) 406 K/uL (130-400); RED BLOOD CELL COUNT(AUTO) 3.12 MIL/uL (4.00-5.50); RED CELL DISTRIBUTION WIDTH 14.4 % (11.0-15.5); WHITE BLOOD COUNT (AUTO) 9.6 K/uL (4.8-10.8)
[2019-08-05 11:14] LABS: CREATININE 0.9 mg/dL (0.5-1.5); POTASSIUM 3.6 mmol/L (3.5-5.1)
[2019-08-05 11:44] LABS: B-TYPE NATRIURETIC PEPTIDE 296 pg/mL (0-100)
--- NOTE | 2019-08-05 12:00 | NUR ---
INFECTIOUS DISEASE DR AYALA SAW PATIENTS RASH ON BACK AND DISCONTINUED MERREM ANTIBIOTIC AT THIS TIME. PATIENT IS TO CONTINUE ON VANCOMYCIN PREVIOUSLY ORDERED. PATIENT DENIES HAVING ITCHINESS TO BACK.
[2019-08-05] MEDS: VANCOMYCIN 500MG+NS 100ML 100 ML IV SCH ×2 (12:23→21:49)
--- NOTE | 2019-08-05 14:00 | NUR ---
PT DISCHARGE HELD FOR NEW RASH AUTH WILL TODAY, WILL RE SUBMIT WHEN CLEARED FOR DISCHARGE
[2019-08-05 16:00] VITALS: BP 96/50
[2019-08-05 19:00] VITALS: BP 89/67
[2019-08-05] MEDS: ATORVASTATIN CALCIUM 20 MG TABLET PO SCH (21:49)
[2019-08-05] MEDS: INSULIN GLARGINE 100 UNITS/ML 10 ML VIAL SQ SCH (21:54)
[2019-08-05 23:00] VITALS: BP 88/68
[2019-08-06 03:00] VITALS: BP 88/62
[2019-08-06] MEDS: INSULIN HUMULIN R 100 UNIT/ML 3ML SQ SCH ×4 (06:50→21:00)
[2019-08-06] MEDS: LEVOTHYROXINE 100 MCG TABLET PO SCH (06:50)
[2019-08-06] MEDS: IPRATROPIUM/ALBUTEROL SULFATE 3 ML SOLUTION IH SCH ×4 (07:06→23:43)
[2019-08-06 07:30] VITALS: BP 91/59
[2019-08-06] MEDS: INSULIN LISPRO 100 UNIT/ML 3ML SQ SCH ×3 (07:30→17:00)
[2019-08-06] MEDS: ENOXAPARIN SODIUM 60 MG/0.6 ML SQ SCH ×2 (09:34→22:18)
[2019-08-06] MEDS: ASPIRIN 81 MG EC TAB PO SCH (09:34)
[2019-08-06] MEDS: FAMOTIDINE/PF 20 MG/2 ML VIAL IV SCH (09:34)
[2019-08-06 11:00] VITALS: BP 90/60
[2019-08-06] MEDS: VANCOMYCIN 500MG+NS 100ML 100 ML IV SCH ×2 (12:29→21:00)
[2019-08-06] MEDS: CLOPIDOGREL BISULFATE 75 MG TAB PO SCH (15:42)
[2019-08-06 16:00] VITALS: BP 91/58
--- NOTE | 2019-08-06 16:17 | NUR ---
AWAITING CLEARANCE TO RE SUBMIT FOR PLACEMENT AUTH , WILL WAIT UNTIL DC PLAN / FINAL ABX PLAN / CLEARANCE BY DR. Ramírez TO RE SUBMIT.
--- NOTE | 2019-08-06 18:13 | NUR ---
5UNITS HUMALOG SCHEDULED AC WAS NOT GIVEN BECAUSE Pt REQUESTED TO EAT LATE, AND IT COINCIDED WITH SLIDING SCALE REGULAR INSULIN. BGL IS 194. 4UNITS OF REGULAR INSULIN PER SLIDING SCALE GIVEN. BGL WILL BE RECJHESKED AT HS. Pt IS STABLE AT THIS TIME.
[2019-08-06 21:52] VITALS: BP 96/73
[2019-08-06] MEDS ORDERED: MIDODRINE HCL 5 MG TABLET ONE (22:07)
[2019-08-06] MEDS ORDERED: MIDODRINE HCL 5 MG TABLET PO SCH (22:15)
[2019-08-06] MEDS: ATORVASTATIN CALCIUM 20 MG TABLET PO SCH (22:19)
[2019-08-06] MEDS: INSULIN GLARGINE 100 UNITS/ML 10 ML VIAL SQ SCH (22:20)
[2019-08-07 00:06] VITALS: BP 90/55
[2019-08-07 04:52] VITALS: BP 161/72
[2019-08-07] MEDS: IPRATROPIUM/ALBUTEROL SULFATE 3 ML SOLUTION IH SCH ×4 (06:24→23:24)
[2019-08-07] MEDS: INSULIN HUMULIN R 100 UNIT/ML 3ML SQ SCH ×4 (06:55→21:00)
[2019-08-07] MEDS: INSULIN LISPRO 100 UNIT/ML 3ML SQ SCH ×3 (06:56→16:42)
[2019-08-07] MEDS: LEVOTHYROXINE 100 MCG TABLET PO SCH (06:56)
[2019-08-07 08:00] VITALS: BP 90/54
[2019-08-07] MEDS ORDERED: MIDODRINE HCL 5 MG TABLET PO SCH (09:00)
--- NOTE | 2019-08-07 09:30 | NUR ---
PATIENT IS LEGALLY BLIND Addendum: 08/07/19 at 2010 by ALFIE MORROW RN RN Amended: Links added.
[2019-08-07] MEDS: ASPIRIN 81 MG EC TAB PO SCH (10:26)
[2019-08-07] MEDS: FAMOTIDINE/PF 20 MG/2 ML VIAL IV SCH (10:27)
[2019-08-07] MEDS: CLOPIDOGREL BISULFATE 75 MG TAB PO SCH (10:27)
[2019-08-07] MEDS: ENOXAPARIN SODIUM 60 MG/0.6 ML SQ SCH ×2 (10:28→21:58)
[2019-08-07] MEDS: VANCOMYCIN 500MG+NS 100ML 100 ML IV SCH (11:28)
[2019-08-07 12:00] VITALS: BP 148/77
--- NOTE | 2019-08-07 12:00 | NUR ---
cm note spoke to paty ayala from [facility] and states they are still pending approval from [facility], but to send updates, and faxed clinical update to [facility].
--- NOTE | 2019-08-07 12:48 | NUR ---
DR AYALA ROUNDED ON PATIENT ORDERED TO D/C CUONG , WILL CONTINUE PATIENT RASH
--- NOTE | 2019-08-07 15:00 | NUR ---
cm note spoke to cayla at [facility], and states that he does not wish to give approval yet, until we know if pt is going to need iv antibiotics, informed him that per dr tompkins he wishes to wait to see how rash responds, before sending pt to snf, and he also dcd the vancomycin med as well. but, pt will still need rehab either way. updated dr Nix on above. Per [facility] cayla states to call him on weekend at [phone], if pt needs to go over the weekend and he will try to assist at that time.
[2019-08-07 16:00] VITALS: BP 107/55
[2019-08-07 20:00] VITALS: BP 93/71
[2019-08-07] MEDS: ATORVASTATIN CALCIUM 20 MG TABLET PO SCH (21:57)
[2019-08-07] MEDS: INSULIN GLARGINE 100 UNITS/ML 10 ML VIAL SQ SCH (22:00)
[2019-08-08] VITALS (7 sets, daily range): BP systolic 96–145; BP diastolic 54–92
[2019-08-08 04:53] LABS: BASOPHILS % (AUTO) 0.9 % (0.0-5.0); EOSINOPHILS % (AUTO) 5.6 % (0.0-8.0); HEMATOCRIT 30.1 % (36-48); LYMPHOCYTES % (AUTO) 23.8 % (21.0-51.0); MEAN CORPUSCULAR HEMOGLOBIN 28.5 pg (27.0-33.0); MEAN CORPUSCULAR HGB CONC 33.1 g/dL (32.0-36.0); MEAN CORPUSCULAR VOLUME 86.1 fL (79-99); MONOCYTES % (AUTO) 8.7 % (3.0-13.0); PLATELET COUNT (AUTO) 428 K/uL (130-400); RED CELL DISTRIBUTION WIDTH 14.4 % (11.0-15.5); WHITE BLOOD COUNT (AUTO) 9.7 K/uL (4.8-10.8)
[2019-08-08 05:16] LABS: ALBUMIN 2.3 g/dL (3.5-5.0); BILIRUBIN,TOTAL 0.5 mg/dL (0.2-1.0); CREATININE 0.9 mg/dL (0.5-1.5); POTASSIUM 3.5 mmol/L (3.5-5.1); TOTAL PROTEIN, SERUM 7.3 g/dL (6.0-8.3)
[2019-08-08] MEDS: INSULIN HUMULIN R 100 UNIT/ML 3ML SQ SCH ×4 (05:51→20:46)
[2019-08-08] MEDS: LEVOTHYROXINE 100 MCG TABLET PO SCH (06:17)
[2019-08-08] MEDS: INSULIN LISPRO 100 UNIT/ML 3ML SQ SCH ×3 (06:18→17:09)
[2019-08-08] MEDS: IPRATROPIUM/ALBUTEROL SULFATE 3 ML SOLUTION IH SCH ×4 (06:34→23:07)
--- NOTE | 2019-08-08 08:00 | NUR ---
patient is legally blind Addendum: 08/08/19 at 1058 by ALFIE MORROW RN RN Amended: Links added.
[2019-08-08] MEDS: FAMOTIDINE/PF 20 MG/2 ML VIAL IV SCH (08:56)
[2019-08-08] MEDS: ASPIRIN 81 MG EC TAB PO SCH (08:57)
[2019-08-08] MEDS: ENOXAPARIN SODIUM 60 MG/0.6 ML SQ SCH ×2 (08:57→20:51)
[2019-08-08] MEDS: CLOPIDOGREL BISULFATE 75 MG TAB PO SCH (08:57)
[2019-08-08] MEDS: PERMETHRIN CREAM 5% 60GM TUBE TP SCH (16:49)
[2019-08-08] MEDS: ATORVASTATIN CALCIUM 20 MG TABLET PO SCH (20:50)
[2019-08-08] MEDS: INSULIN GLARGINE 100 UNITS/ML 10 ML VIAL SQ SCH (20:51)
[2019-08-09 03:00] VITALS: BP 90/54
[2019-08-09] MEDS: INSULIN HUMULIN R 100 UNIT/ML 3ML SQ SCH ×4 (05:23→20:35)
[2019-08-09 05:25] LABS: BASOPHILS % (AUTO) 1.4 % (0.0-5.0); EOSINOPHILS % (AUTO) 5.2 % (0.0-8.0); HEMATOCRIT 29.4 % (36-48); LYMPHOCYTES % (AUTO) 19.8 % (21.0-51.0); MEAN CORPUSCULAR HEMOGLOBIN 28.9 pg (27.0-33.0); MEAN CORPUSCULAR HGB CONC 33.3 g/dL (32.0-36.0); MEAN CORPUSCULAR VOLUME 86.6 fL (79-99); MONOCYTES % (AUTO) 9.5 % (3.0-13.0); NEUTROPHILS % (AUTO) 64.1 % (40.0-77.0); PLATELET COUNT (AUTO) 383 K/uL (130-400); RED CELL DISTRIBUTION WIDTH 14.9 % (11.0-15.5); WHITE BLOOD COUNT (AUTO) 9.3 K/uL (4.8-10.8)
[2019-08-09 05:49] LABS: ALBUMIN 2.4 g/dL (3.5-5.0); BILIRUBIN,TOTAL 0.4 mg/dL (0.2-1.0); CREATININE 0.9 mg/dL (0.5-1.5); POTASSIUM 3.7 mmol/L (3.5-5.1); TOTAL PROTEIN, SERUM 7.2 g/dL (6.0-8.3)
[2019-08-09] MEDS: LEVOTHYROXINE 100 MCG TABLET PO SCH (05:55)
[2019-08-09] MEDS: IPRATROPIUM/ALBUTEROL SULFATE 3 ML SOLUTION IH SCH ×4 (06:34→23:20)
[2019-08-09 08:00] VITALS: BP 123/53
[2019-08-09] MEDS: PERMETHRIN CREAM 5% 60GM TUBE TP SCH (08:01)
[2019-08-09] MEDS: ENOXAPARIN SODIUM 60 MG/0.6 ML SQ SCH (09:16)
[2019-08-09] MEDS: FAMOTIDINE/PF 20 MG/2 ML VIAL IV SCH (09:16)
[2019-08-09] MEDS: CLOPIDOGREL BISULFATE 75 MG TAB PO SCH (09:16)
[2019-08-09] MEDS: ASPIRIN 81 MG EC TAB PO SCH (09:16)
[2019-08-09] MEDS: INSULIN LISPRO 100 UNIT/ML 3ML SQ SCH ×3 (09:23→16:53)
[2019-08-09 11:00] VITALS: BP 117/51
[2019-08-09 16:00] VITALS: BP 122/59
[2019-08-09 19:00] VITALS: BP 140/75
[2019-08-09] MEDS: ATORVASTATIN CALCIUM 20 MG TABLET PO SCH (20:35)
[2019-08-09] MEDS: INSULIN GLARGINE 100 UNITS/ML 10 ML VIAL SQ SCH (20:36)
[2019-08-09 23:00] VITALS: BP 139/67
[2019-08-10 03:00] VITALS: BP 106/48
[2019-08-10 04:58] LABS: BASOPHILS % (AUTO) 1.1 % (0.0-5.0); HEMATOCRIT 27.1 % (36-48); MEAN CORPUSCULAR HEMOGLOBIN 29.1 pg (27.0-33.0); MEAN CORPUSCULAR HGB CONC 33.7 g/dL (32.0-36.0); MEAN CORPUSCULAR VOLUME 86.4 fL (79-99); MONOCYTES % (AUTO) 10.5 % (3.0-13.0); NEUTROPHILS % (AUTO) 53.4 % (40.0-77.0); PLATELET COUNT (AUTO) 338 K/uL (130-400); RED BLOOD CELL COUNT(AUTO) 3.13 MIL/uL (4.00-5.50); RED CELL DISTRIBUTION WIDTH 14.8 % (11.0-15.5); WHITE BLOOD COUNT (AUTO) 7.6 K/uL (4.8-10.8)
[2019-08-10 05:18] LABS: ALBUMIN 2.3 g/dL (3.5-5.0); BILIRUBIN,TOTAL 0.4 mg/dL (0.2-1.0); POTASSIUM 3.6 mmol/L (3.5-5.1); TOTAL PROTEIN, SERUM 7.1 g/dL (6.0-8.3)
[2019-08-10] MEDS: INSULIN HUMULIN R 100 UNIT/ML 3ML SQ SCH ×3 (05:30→17:36)
[2019-08-10] MEDS: LEVOTHYROXINE 100 MCG TABLET PO SCH (05:53)
[2019-08-10] MEDS: IPRATROPIUM/ALBUTEROL SULFATE 3 ML SOLUTION IH SCH ×3 (06:45→18:16)
[2019-08-10 08:00] VITALS: BP 103/49
[2019-08-10] MEDS ORDERED: ENOXAPARIN SODIUM 40 MG/0.4 ML SYRINGE SQ SCH (09:00)
[2019-08-10] MEDS: FAMOTIDINE/PF 20 MG/2 ML VIAL IV SCH (09:11)
[2019-08-10] MEDS: CLOPIDOGREL BISULFATE 75 MG TAB PO SCH (09:12)
[2019-08-10] MEDS: ASPIRIN 81 MG EC TAB PO SCH (09:12)
[2019-08-10] MEDS: INSULIN LISPRO 100 UNIT/ML 3ML SQ SCH ×3 (09:21→17:00)
[2019-08-10] MEDS: PERMETHRIN CREAM 5% 60GM TUBE TP SCH (09:22)
[2019-08-10 12:00] VITALS: BP 126/59
--- NOTE | 2019-08-10 12:37 | NUR ---
[facility] NOTE: UPDATED FAXED CLINICALS, UPDATED ORDERS FAXED TO MICHAEL, WILL FOLLOW UP FOR PENDING AUTHORIZATION.
[2019-08-10 16:00] VITALS: BP 152/70
--- NOTE | 2019-08-10 16:10 | NUR ---
RD FOLLOW UP NOTE Pt tolerating current Diet order with no report of GI distress, Good PO intake (100%). RN with concern for Pt with Legally Blindness. Pt food preferences obtained to assist in tolerable meal conditions. Recommend to add Chopped meats, covered or sealed beverages. Also recommend assistance in meal tray set-up. Also recommend to add Glucerna as per Pt request. Pt LBM 08/09/19. Pt monitored labs: BG 154, Ca 8.3, Alb 2.3. RD to continue to monitor. Please notify RD as additional nutrition concerns arise. Thank you. Addendum: 08/10/19 at [address] Amended: Links added.
--- NOTE | 2019-08-10 16:45 | NUR ---
REPORT GIVEN TO BENITO RODRIGUEZ , REHAB ,
--- NOTE | 2019-08-10 16:53 | NUR ---
PICC LINE DC ORDER, EXPLAIN TO PTOF ORDER , PICC TO HER LT UPPER ARM , IN PLACE ,INSTRUCTED PT TO TAKE A DEEP BREATH HOLD AND PICC LINE TO HER LT UPPER ARM DC TIP CATHETER IN PLACED , NOTED NO HEMATOMA . OR REDNESS A SM PRESSURE DRSG APPLICATION ON CMS PRESENT TO HER FINGERSWITH A STRONG RADIAL PULSE .
--- NOTE | 2019-08-10 16:56 | NUR ---
CHECK FOR LICE NOTED NONE, PT DOES HAVE DRYNESS , DANDRUFF, TO HER SCALP.ESPECIALLY TO HER BACK SIDE OF HEAD,
--- NOTE | 2019-08-10 18:30 | NUR ---
DISCHARGE,WITH VERANDA STAFF VIA WHEELCHAIR, TOOK PERSONAL BELONGING AND FAMILY MEMBERS AWARE OF DISCHARGE CARE, LT FOOT DRSG DRY AND CLEAN. LT UPPER PICC LINE WAS DC SITE WITH NO HEMATOMA OR REDNESS TO SITE. NO C/O OF PAIN . CMS CHECK FINGERS WARM AND PINK
== END 2019-08-10 18:45 | DRG 853 ==
LOC: EDH 14:18 → EDHIP 16:45 → 3CH 21:44
PROVIDERS: ADMIT Internal Medicine; ATTEND Internal Medicine
PROC: 3E0234Z Introduction of Serum, Toxoid and Vaccine into Muscle, Percutaneous Approach (ICD-10-PCS; 2019-07-22)
PROC: 04CL3ZZ Extirpation of Matter from Left Femoral Artery, Percutaneous Approach (ICD-10-PCS; principal; 2019-07-27)
PROC: 047L3Z1 Dilation of Left Femoral Artery using Drug-Coated Balloon, Percutaneous Approach (ICD-10-PCS; 2019-07-27)
PROC: 047N3Z1 Dilation of Left Popliteal Artery using Drug-Coated Balloon, Percutaneous Approach (ICD-10-PCS; 2019-07-27)
PROC: 047Q3ZZ Dilation of Left Anterior Tibial Artery, Percutaneous Approach (ICD-10-PCS; 2019-07-27)
PROC: B41G1ZZ Fluoroscopy of Left Lower Extremity Arteries using Low Osmolar Contrast (ICD-10-PCS; 2019-07-27)
PROC: 30233N1 Transfusion of Nonautologous Red Blood Cells into Peripheral Vein, Percutaneous Approach (ICD-10-PCS; 2019-07-29)
PROC: 0Y6N0Z9 Detachment at Left Foot, Partial 1st Ray, Open Approach (ICD-10-PCS; 2019-07-30)
PROC: 0Y6N0ZB Detachment at Left Foot, Partial 2nd Ray, Open Approach (ICD-10-PCS; 2019-07-30)
PROC: 0Y6N0ZC Detachment at Left Foot, Partial 3rd Ray, Open Approach (ICD-10-PCS; 2019-07-30)
PROC: 0Y6N0ZD Detachment at Left Foot, Partial 4th Ray, Open Approach (ICD-10-PCS; 2019-07-30)
PROC: 0Y6N0ZF Detachment at Left Foot, Partial 5th Ray, Open Approach (ICD-10-PCS; 2019-07-30)
DX: A41.9 Sepsis, unspecified organism (principal); E43 Unspecified severe protein-calorie malnutrition; E11.52 Type 2 diabetes mellitus with diabetic peripheral angiopathy with gangrene; M86.9 Osteomyelitis, unspecified; L03.116 Cellulitis of left lower limb; I82.621 Acute embolism and thrombosis of deep veins of right upper extremity; D62 Acute posthemorrhagic anemia; E11.69 Type 2 diabetes mellitus with other specified complication; B85.0 Pediculosis due to Pediculus humanus capitis; D64.9 Anemia, unspecified; I10 Essential (primary) hypertension; E03.9 Hypothyroidism, unspecified; R65.20 Severe sepsis without septic shock; L97.509 Non-pressure chronic ulcer of other part of unspecified foot with unspecified severity; K59.00 Constipation, unspecified; H54.8 Legal blindness, as defined in USA; E87.6 Hypokalemia; E83.51 Hypocalcemia; E78.5 Hyperlipidemia, unspecified; K57.90 Diverticulosis of intestine, part unspecified, without perforation or abscess without bleeding; E11.621 Type 2 diabetes mellitus with foot ulcer; E11.628 Type 2 diabetes mellitus with other skin complications; R06.00 Dyspnea, unspecified; E11.42 Type 2 diabetes mellitus with diabetic polyneuropathy; Z68.21 Body mass index [BMI] 21.0-21.9, adult; Z88.0 Allergy status to penicillin; Z74.01 Bed confinement status; Z79.02 Long term (current) use of antithrombotics/antiplatelets; Z79.4 Long term (current) use of insulin; Z79.82 Long term (current) use of aspirin; Z82.5 Family history of asthma and other chronic lower respiratory diseases; Z83.3 Family history of diabetes mellitus; Z23 Encounter for immunization
CPT/HCPCS: 36415; 36430; 37225; 37228; 71045; 73630; 75635; 75710; 75774; 80048; 80053; 80202; 82948; 83036; 83605; 83735; 83880; 84100; 84145; 85014; 85018; 85025; 85027; 85347; 85610; 85651; 85730; 86140; 86850; 86900; 86901; 86922; 87040; 87088; 88304; 88311; 90715; 93925; 93971; 94640; 94664; 97039; 99156; 99157; C1769; C1884; C1893; C1894; G0378; J0583; J1200; J1644; J1650; J1815; J1940; J1956; J2001; J2185; J2250; J2405; J2704; J3010; J3370; J3490; J7030; J7120; P9016; Q9967

== ENCOUNTER → 2019-08-19 | Outpatient (CLI) | payer OTHER, MEDICARE ==
[~2019-08-19] MED LIST: INSU100V SQ; INSU100V12 SQ; LEVO100T12 PO; LISI10TA7 PO; ROSU10TA28 PO
[2019-08-19 12:05] VITALS: BP 95/49
== END | disposition home or self-care (01) ==
LOC: WHH 09:00
PROVIDERS: ATTEND Podiatrist Foot & Ankle Surgery
DX: T87.89 Other complications of amputation stump (principal); E11.621 Type 2 diabetes mellitus with foot ulcer; L97.521 Non-pressure chronic ulcer of other part of left foot limited to breakdown of skin; H54.8 Legal blindness, as defined in USA; E11.42 Type 2 diabetes mellitus with diabetic polyneuropathy; E11.51 Type 2 diabetes mellitus with diabetic peripheral angiopathy without gangrene; I10 Essential (primary) hypertension; E78.5 Hyperlipidemia, unspecified; E03.9 Hypothyroidism, unspecified; E11.69 Type 2 diabetes mellitus with other specified complication; M86.8X7 Other osteomyelitis, ankle and foot; Z86.718 Personal history of other venous thrombosis and embolism; Z79.4 Long term (current) use of insulin; Z79.82 Long term (current) use of aspirin; Z79.02 Long term (current) use of antithrombotics/antiplatelets; Z88.0 Allergy status to penicillin; Y83.5 Amputation of limb(s) as the cause of abnormal reaction of the patient, or of later complication, without mention of misadventure at the time of the procedure
CPT/HCPCS: G0463

== ENCOUNTER → 2019-09-02 | Outpatient (CLI) | payer OTHER, MEDICARE ==
[2019-09-02 12:48] VITALS: BP 113/56
== END | disposition home or self-care (01) ==
LOC: WHH 09:15
PROVIDERS: ATTEND Podiatrist Foot & Ankle Surgery
DX: T87.89 Other complications of amputation stump (principal); E11.621 Type 2 diabetes mellitus with foot ulcer; L97.521 Non-pressure chronic ulcer of other part of left foot limited to breakdown of skin; H54.8 Legal blindness, as defined in USA; E11.42 Type 2 diabetes mellitus with diabetic polyneuropathy; E11.51 Type 2 diabetes mellitus with diabetic peripheral angiopathy without gangrene; I10 Essential (primary) hypertension; E78.5 Hyperlipidemia, unspecified; E03.9 Hypothyroidism, unspecified; E11.69 Type 2 diabetes mellitus with other specified complication; M86.8X7 Other osteomyelitis, ankle and foot; Z86.718 Personal history of other venous thrombosis and embolism; Z79.4 Long term (current) use of insulin; Z79.82 Long term (current) use of aspirin; Z79.02 Long term (current) use of antithrombotics/antiplatelets; Z88.0 Allergy status to penicillin; Y83.5 Amputation of limb(s) as the cause of abnormal reaction of the patient, or of later complication, without mention of misadventure at the time of the procedure
CPT/HCPCS: G0463

== ENCOUNTER → 2019-09-30 | Outpatient (CLI) | payer OTHER, MEDICARE ==
[2019-09-30 14:22] VITALS: BP 127/63
== END | disposition home or self-care (01) ==
LOC: WHH 09:54
PROVIDERS: ATTEND Podiatrist Foot & Ankle Surgery
DX: T87.89 Other complications of amputation stump (principal); E11.621 Type 2 diabetes mellitus with foot ulcer; L97.521 Non-pressure chronic ulcer of other part of left foot limited to breakdown of skin; H54.8 Legal blindness, as defined in USA; E11.42 Type 2 diabetes mellitus with diabetic polyneuropathy; E11.51 Type 2 diabetes mellitus with diabetic peripheral angiopathy without gangrene; I10 Essential (primary) hypertension; E78.5 Hyperlipidemia, unspecified; M86.8X7 Other osteomyelitis, ankle and foot; E03.9 Hypothyroidism, unspecified; E11.69 Type 2 diabetes mellitus with other specified complication; Z86.718 Personal history of other venous thrombosis and embolism; Z79.4 Long term (current) use of insulin; Z79.82 Long term (current) use of aspirin; Z79.02 Long term (current) use of antithrombotics/antiplatelets; Z88.0 Allergy status to penicillin; Y83.5 Amputation of limb(s) as the cause of abnormal reaction of the patient, or of later complication, without mention of misadventure at the time of the procedure
CPT/HCPCS: 97597

== ENCOUNTER → 2020-02-17 | Outpatient (CLI) | payer OTHER, MEDICARE ==
[2020-02-17 11:45] VITALS: BP 121/56
== END | disposition home or self-care (01) ==
LOC: WHH 08:05
PROVIDERS: ATTEND Podiatrist Foot & Ankle Surgery
DX: T87.89 Other complications of amputation stump (principal); E11.621 Type 2 diabetes mellitus with foot ulcer; L97.521 Non-pressure chronic ulcer of other part of left foot limited to breakdown of skin; L97.411 Non-pressure chronic ulcer of right heel and midfoot limited to breakdown of skin; H54.8 Legal blindness, as defined in USA; E11.42 Type 2 diabetes mellitus with diabetic polyneuropathy; E11.51 Type 2 diabetes mellitus with diabetic peripheral angiopathy without gangrene; I10 Essential (primary) hypertension; E78.5 Hyperlipidemia, unspecified; E11.69 Type 2 diabetes mellitus with other specified complication; M86.8X7 Other osteomyelitis, ankle and foot; E03.9 Hypothyroidism, unspecified; Z86.718 Personal history of other venous thrombosis and embolism; Z79.4 Long term (current) use of insulin; Z79.82 Long term (current) use of aspirin; Z79.02 Long term (current) use of antithrombotics/antiplatelets; Z88.0 Allergy status to penicillin; Y83.5 Amputation of limb(s) as the cause of abnormal reaction of the patient, or of later complication, without mention of misadventure at the time of the procedure
CPT/HCPCS: G0463

== ENCOUNTER → 2020-02-24 | Outpatient (CLI) | payer OTHER, MEDICARE ==
[2020-02-24 10:07] VITALS: BP 127/56
== END | disposition home or self-care (01) ==
LOC: WHH 08:30
PROVIDERS: ATTEND Podiatrist Foot & Ankle Surgery
DX: T87.89 Other complications of amputation stump (principal); E11.621 Type 2 diabetes mellitus with foot ulcer; L97.521 Non-pressure chronic ulcer of other part of left foot limited to breakdown of skin; L97.411 Non-pressure chronic ulcer of right heel and midfoot limited to breakdown of skin; H54.8 Legal blindness, as defined in USA; E11.42 Type 2 diabetes mellitus with diabetic polyneuropathy; E11.51 Type 2 diabetes mellitus with diabetic peripheral angiopathy without gangrene; I10 Essential (primary) hypertension; E78.5 Hyperlipidemia, unspecified; E11.69 Type 2 diabetes mellitus with other specified complication; M86.8X7 Other osteomyelitis, ankle and foot; E03.9 Hypothyroidism, unspecified; Z86.718 Personal history of other venous thrombosis and embolism; Z79.4 Long term (current) use of insulin; Z79.82 Long term (current) use of aspirin; Z79.02 Long term (current) use of antithrombotics/antiplatelets; Z88.0 Allergy status to penicillin; Y83.5 Amputation of limb(s) as the cause of abnormal reaction of the patient, or of later complication, without mention of misadventure at the time of the procedure
CPT/HCPCS: G0463

== ENCOUNTER 2020-03-04 10:34 | Inpatient (IN) | payer OTHER, MEDICARE ==
[~2020-03-04] VITALS: Ht 160 cm; Wt 54.4 kg
[2020-03-04 11:52] LABS: BASOPHILS % (AUTO) 0.4 % (0.0-5.0); EOSINOPHILS % (AUTO) 1.5 % (0.0-8.0); HEMATOCRIT 21.7 % (36-48); LYMPHOCYTES % (AUTO) 23.4 % (21.0-51.0); MEAN CORPUSCULAR HEMOGLOBIN 28.3 pg (27.0-33.0); MEAN CORPUSCULAR HGB CONC 32.7 g/dL (32.0-36.0); MEAN CORPUSCULAR VOLUME 86.5 fL (79-99); MONOCYTES % (AUTO) 8.2 % (3.0-13.0); NEUTROPHILS % (AUTO) 65.9 % (40.0-77.0); PLATELET COUNT (AUTO) 419 K/uL (130-400); RED BLOOD CELL COUNT(AUTO) 2.51 MIL/uL (4.00-5.50); RED CELL DISTRIBUTION WIDTH 13.3 % (11.0-15.5); WHITE BLOOD COUNT (AUTO) 15.6 K/uL (4.8-10.8)
[2020-03-04 12:06] LABS: CREATININE 2.2 mg/dL (0.5-1.5); POTASSIUM 4.1 mmol/L (3.5-5.1)
[2020-03-04 12:10] LABS: ALBUMIN 2.2 g/dL (3.5-5.0); BILIRUBIN,TOTAL 0.2 mg/dL (0.2-1.0); TOTAL PROTEIN, SERUM 8.7 g/dL (6.0-8.3)
[2020-03-04] MEDS ORDERED: SODIUM CHLORIDE 0.9% 100 ML IV ONE ×2 (12:27→17:33)
[2020-03-04] MEDS ORDERED: MEROPENEM 500 MG VIAL ONE (12:27)
[2020-03-04] MEDS ORDERED: VANCOMYCIN 1GM+NS 250ML 250 ML IV SCH (13:00)
[2020-03-04] MEDS ORDERED: VANCOMYCIN 1GM+NS 250ML 250 ML IV ONE (13:40)
[2020-03-04] MEDS ORDERED: ACETAMINOPHEN 325 MG TAB PO PRN (15:45)
[2020-03-04] MEDS ORDERED: ONDANSETRON HCL 4 MG/2 ML VIAL IVP PRN (15:45)
[2020-03-04] MEDS ORDERED: MORPHINE SULFATE 2 MG/ML 1ML SYG IVP PRN (15:45)
[2020-03-04] MEDS ORDERED: VANCOMYCIN PROTOCOL PER PHARMACY IV SCH (15:45)
[2020-03-04] MEDS: CEFEPIME HCL 1 GM VIAL IVP SCH (16:00)
[2020-03-04] MEDS ORDERED: CEFEPIME HCL 1 GM VIAL ONE (17:32)
[2020-03-04 20:27] VITALS: BP 90/38
[2020-03-04] MEDS: INSULIN R PO SS1 SQ SCH (21:00)
[2020-03-04 23:20] VITALS: BP 97/50
[2020-03-05 03:49] VITALS: BP 92/50
[2020-03-05 05:36] LABS: HEMATOCRIT 22.1 % (36-48); MEAN CORPUSCULAR HEMOGLOBIN 27.6 pg (27.0-33.0); MEAN CORPUSCULAR HGB CONC 31.2 g/dL (32.0-36.0); MEAN CORPUSCULAR VOLUME 88.4 fL (79-99); RED BLOOD CELL COUNT(AUTO) 2.5 MIL/uL (4.00-5.50); RED CELL DISTRIBUTION WIDTH 13.8 % (11.0-15.5); WHITE BLOOD COUNT (AUTO) 16.6 K/uL (4.8-10.8)
[2020-03-05 05:41] LABS: CREATININE 1.7 mg/dL (0.5-1.5); MAGNESIUM 2.4 mg/dL (1.80-2.40); POTASSIUM 4.9 mmol/L (3.5-5.1)
[2020-03-05] MEDS: INSULIN R PO SS1 SQ SCH ×3 (06:35→21:00)
--- NOTE | 2020-03-05 06:50 | NUR ---
PATIENT UPDATE 64 yr old pt admitted for rt foot gangrene, was given 3 iv antibioitics fr er, fluids bolus. Blood pressures had been running in the 90's mmhg systolic and 50's mmhg diastolic. H/H this am fr 7.1/21.7 to 6.9/ 22.1 this am. Hasn't voided overnight, bladder not distended, Dr. Gillespie called at 0640 and updated with the latest cbc result as well as the bp readings and the anuric state and ordered to start pt on fluids with ns at 100 cc/hr and to repeat h/h and to give 1 unit if the hb is less that 7.0. Ordered type and cross for 1 unit of prbc together with the type and screen. Pictures of the gangrenous rt foot taken, as well as the left foot tma. Pt without any complaints of pain overnight, slept well.
[2020-03-05 06:55] LABS: HEMATOCRIT 21.3 % (36-48)
[2020-03-05 08:04] VITALS: BP 111/56
[2020-03-05] MEDS: SODIUM CHLORIDE 0.9% 1000ML 1,000 ML IV SCH ×2 (08:35→16:51)
[2020-03-05 12:01] VITALS: BP 118/59
--- NOTE | 2020-03-05 15:06 | NUR ---
DR. EFREN RAO SPOKE TO PATIENT AT BEDSIDE AND DR. SCHWARTZ WILL TALK TO DR. AYALA REGARDING LABS AND ANTIBIOTIC (VANCO)
[2020-03-05 15:49] VITALS: BP 126/52
[2020-03-05] MEDS: CEFEPIME HCL 1 GM VIAL IVP SCH (16:52)
[2020-03-05 19:52] VITALS: BP 110/59
[2020-03-05] MEDS: TRAMADOL HCL 50 MG TABLET PO SCH (21:00)
[2020-03-05 23:20] VITALS: BP 96/53
[2020-03-06] VITALS (22 sets, daily range): BP systolic 91–130; BP diastolic 48–66
[2020-03-06] MEDS: SODIUM CHLORIDE 0.9% 1000ML 1,000 ML IV SCH ×5 (02:45→12:45)
[2020-03-06 05:13] LABS: HEMATOCRIT 24.3 % (36-48); MEAN CORPUSCULAR HGB CONC 32.1 g/dL (32.0-36.0); MEAN CORPUSCULAR VOLUME 87.1 fL (79-99); NUCLEATED RED BLOOD CELLS 0.2 % (0.0-0.19); PLATELET COUNT (AUTO) 422 K/uL (130-400); RED BLOOD CELL COUNT(AUTO) 2.79 MIL/uL (4.00-5.50); RED CELL DISTRIBUTION WIDTH 14.5 % (11.0-15.5); WHITE BLOOD COUNT (AUTO) 15.2 K/uL (4.8-10.8)
[2020-03-06 05:24] LABS: INR 1.1 (0.85-1.15); PARTIAL THROMBOPLASTIN TIME 34.8 SEC (26.3-35.5); PROTHROMBIN TIME 11.8 SEC (9.6-11.6)
[2020-03-06 05:33] LABS: CREATININE 1.3 mg/dL (0.5-1.5); POTASSIUM 4.8 mmol/L (3.5-5.1)
[2020-03-06 05:41] LABS: BAND NEUTROPHILS % (MANUAL) 4 % (0-2); BASOPHILS % (MANUAL) 1 % (0-2); LYMPHOCYTES % (MANUAL) 8 % (22-44); MAN.DIFF COMMENT-IMPRESSION MANUAL DIFFERENTIAL; MONOCYTES % (MANUAL) 9 % (2-9); PLATELET MORPHOLOGY COMMENT ADEQUATE; SEGMENTED NEUTROPHILS % 78 % (40-70)
[2020-03-06] MEDS: INSULIN R PO SS1 SQ SCH ×4 (07:12→21:00)
[2020-03-06] MEDS ORDERED: VANCOMYCIN 1GM+NS 250ML 250 ML IV SCH (09:00)
[2020-03-06] MEDS: TRAMADOL HCL 50 MG TABLET PO SCH ×2 (09:00→20:19)
[2020-03-06] MEDS ORDERED: SUCCINYLCHOLINE 200MG/10ML SYR ONE (09:21)
[2020-03-06] MEDS ORDERED: LIDOCAINE PF 2% 5ML ABBOJECT ONE (09:21)
[2020-03-06] MEDS ORDERED: ROCURONIUM 10MG/1ML SYR 10 MG/ML ML ONE (09:22)
[2020-03-06] MEDS ORDERED: FENTANYL CITRATE PF 50 MCG/1 ML 2ML VIAL ONE (09:22)
[2020-03-06] MEDS ORDERED: PROPOFOL 10 MG/ML 20ML VIAL IV ONE (09:22)
--- NOTE | 2020-03-06 09:33 | NUR ---
OR PT LEFT VIA BED TO OR WITH AMANDA RN, A/A X 3 AND V/S STABLE.
[2020-03-06] MEDS ORDERED: EPHEDRINE SULFATE 50 MG/ML AMPULE ONE (10:03)
[2020-03-06] MEDS ORDERED: SODIUM CHLORIDE 0.9% 10 ML VIAL ONE (10:05)
[2020-03-06] MEDS ORDERED: PHENYLEPHRINE HCL 10 MG/ML 1ML VIAL IV ONE (10:05)
[2020-03-06] MEDS ORDERED: POTASSIUM CHLORIDE 10% ELIXIR 20 MEQ/15 ML UDCUP PO PRN (11:00)
[2020-03-06] MEDS ORDERED: KETOROLAC TROMETHAMINE 15MG/ML IV PRN (11:00)
[2020-03-06] MEDS ORDERED: DIPHENHYDRAMINE HCL 25 MG CAPSULE PO PRN (11:00)
[2020-03-06] MEDS ORDERED: OXYCODONE HCL 5 MG TAB PO PRN (11:00)
[2020-03-06] MEDS ORDERED: FERROUS FUMARATE 324 MG TABLET PO PRN (11:00)
[2020-03-06] MEDS ORDERED: CALCIUM CARBONATE 500 MG TABLET PO PRN (11:00)
[2020-03-06] MEDS ORDERED: POTASSIUM CHLORIDE 20MEQ/100ML 100 ML IV PRN (11:00)
[2020-03-06] MEDS ORDERED: POTASSIUM CHLORIDE 20 MEQ ERTAB PO PRN (11:00)
[2020-03-06] MEDS ORDERED: DiphenhydrAMINE HCL 50 MG/ML VIAL IVP PRN (11:00)
[2020-03-06] MEDS: PSYLLIUM SEED 1 EACH PACKET PO SCH (12:00)
--- NOTE | 2020-03-06 12:10 | NUR ---
POST OPX1 PT CAME FROM OR FOR RT. BKA TOLERATED PROCEDURE WELL. PT CAME BY BED WITH NGA CHANDRA. PT A/A X 3 V/S STABLE DRESSING DRY AND INTACT WITH ALLEGRA TO THE SURGICAL SITE DRAINING SEROSANGUINEOUS, POPITEAL PULSE PRESENT, WARM TO THE RT LEG.
--- NOTE | 2020-03-06 12:20 | NUR ---
POST OP X 2 PT CONTINUE TO DO WELL V/S STABLE, POPITEAL PULSE PRESENT, DRESSING DRY AND INTACT, WILL CONTINUE TO MONITOR.
--- NOTE | 2020-03-06 12:40 | NUR ---
POST -OP X 3 PT SON YANELIS COELLO AT BEDSIDE, FEEDING PT, VS STABLE, POPITEAL PULSE PRESENT, DRESSING DRY AND INTACT, ALLEGRA INTACT. ALSO PT WHITE AND GOLD RING GIVEN TO HER SON YANELIS COELLO TO TAKE HOME.
--- NOTE | 2020-03-06 12:55 | NUR ---
POST OPX4 PT A/A X 3 WITH SON AT HER BEDSIDE, V/S STABLE , DRESSING DRY AND INTACT, POPITEAL PULSE TO THE RIGHT LEG PRESENT.
[2020-03-06] MEDS: FAMOTIDINE 20MG TAB 20 MG TAB PO SCH (13:12)
[2020-03-06] MEDS: ACETAMINOPHEN EXTRA STRENGTH 500 MG TABLET PO SCH ×2 (13:13→20:15)
--- NOTE | 2020-03-06 13:25 | NUR ---
POST 30 X1 PT SLEEPING IN BED WITH SON AT BEDSIDE. PT V/S STABLE DRESSING DRY AND INTACT, ALLEGRA INTACT, PULSE TO POPITEAL PRESENT TO RT LEG, WILL CONTINUE TO MONITOR.
--- NOTE | 2020-03-06 13:55 | NUR ---
POST OP 30 X2 PT SLEEPING RESTING COMFORTABLY, DRESSING DRY AND INTACT, PULSE PRESENT TO RT POPITEAL, V/S STABLE WILL CONTINUE TO MONITOR PT.
--- NOTE | 2020-03-06 14:55 | NUR ---
POST OP X 1 HR NO CHANGE IN STATUS, DRESSING DRY AND INTACT, RT POPITEAL PRESENT V/S STABLE NO PAIN.
--- NOTE | 2020-03-06 16:04 | NUR ---
DR. SCHWARTZ SPOKE WITH PATIENT AT BEDSIDE.
[2020-03-06] MEDS: CEFEPIME HCL 1 GM VIAL IVP SCH (17:01)
--- NOTE | 2020-03-06 19:02 | NUR ---
D/C PLAN CM spoke to pt regarding d/c planning. Pt is ind. and lives with son. States she has home health for wound care. States she has provider services about 5 hrs/day. States she has w/c, bsc, and shower chair. CM offered short term snf/rehab. Declined. States she would like to return to home with same home health. Patient unable to recall name of agency. Plan to home. CM to f/u. Addendum: 03/06/20 at 1907 by HOWIE SORIANO CM Amended: Links added.
[2020-03-07] VITALS (7 sets, daily range): BP systolic 96–128; BP diastolic 45–62
[2020-03-07] MEDS: ACETAMINOPHEN EXTRA STRENGTH 500 MG TABLET PO SCH ×3 (03:00→19:00)
[2020-03-07] MEDS: INSULIN R PO SS1 SQ SCH ×4 (08:30→20:17)
[2020-03-07] MEDS: POLYETHYLENE GLYCOL 3350 17 GM POWD.PACK PO SCH (08:34)
[2020-03-07] MEDS: FAMOTIDINE 20MG TAB 20 MG TAB PO SCH (08:34)
[2020-03-07] MEDS: TRAMADOL HCL 50 MG TABLET PO SCH ×2 (08:36→21:00)
[2020-03-07] MEDS: PSYLLIUM SEED 1 EACH PACKET PO SCH (12:30)
--- NOTE | 2020-03-07 16:51 | NUR ---
DISPOSITION- HOME WITH HOME HEALTH- HAS BEEN ACTIVE WITH [facility] FOR WOUND CARE IN THE PAST, AND PT; WANTS TO CONTINUE WITH THEM. DECLINED PAYMENT Addendum: 03/07/20 at 1652 by MEMO RENTERIA RN CM Amended: Links added.
[2020-03-07] MEDS: SODIUM CHLORIDE 0.9% 1000ML 1,000 ML IV SCH (20:07)
[2020-03-08] MEDS: ACETAMINOPHEN EXTRA STRENGTH 500 MG TABLET PO SCH ×3 (03:00→20:51)
[2020-03-08 04:00] VITALS: BP 100/53
[2020-03-08] MEDS: SODIUM CHLORIDE 0.9% 1000ML 1,000 ML IV SCH (05:52)
[2020-03-08 07:17] VITALS: BP 119/60
[2020-03-08] MEDS: INSULIN R PO SS1 SQ SCH ×4 (07:30→20:57)
[2020-03-08] MEDS: POLYETHYLENE GLYCOL 3350 17 GM POWD.PACK PO SCH (08:36)
[2020-03-08] MEDS: FAMOTIDINE 20MG TAB 20 MG TAB PO SCH (08:36)
[2020-03-08] MEDS: TRAMADOL HCL 50 MG TABLET PO SCH ×2 (08:59→20:51)
[2020-03-08 10:31] VITALS: BP 131/67
[2020-03-08] MEDS ORDERED: BISACODYL 5 MG TABLET.DR PO PRN (11:00)
[2020-03-08] MEDS: PSYLLIUM SEED 1 EACH PACKET PO SCH (11:34)
[2020-03-08 15:40] VITALS: BP 127/62
[2020-03-08 20:01] VITALS: BP 120/58
--- NOTE | 2020-03-08 20:51 | NUR ---
MEDS AWAKEN PT FOR DUE MEDS. SHIFT ASSESSMENT DONE, PLEASE REFER TO CHART. MEDICATED PT, TOLERATED WELL. KEPT RESTED AND COMFORTABLE IN BED. CALL LIGHT WITHIN REACH. Addendum: 03/09/20 at 0131 by MENDEZ VEGAS RN RN Amended: Links added.
[2020-03-09] VITALS: BP 97/52
[2020-03-09] MEDS: SODIUM CHLORIDE 0.9% 1000ML 1,000 ML IV SCH (00:10)
--- NOTE | 2020-03-09 02:00 | NUR ---
ROUNDS PT IS FAIRLY ASLEEP. NO DISTRESS NOTED. KEPT UNDISTURBED FOR NOW. CALL LIGHT WITHIN REACH. WILL MONITOR PT.
[2020-03-09] MEDS: ACETAMINOPHEN EXTRA STRENGTH 500 MG TABLET PO SCH ×3 (03:00→10:58)
--- NOTE | 2020-03-09 03:40 | NUR ---
REFUSED PT ALREADY AWAKE. BOTTOM SCRUBBER WAS ABOUT TO GIVE SCHEDULED TYLENOL DOSE BUT PT REFUSED. PT CLAIMS THAT SHE IS NOT HURTING AND WILL CALL FOR PAIN MED WHEN NEEDED.
[2020-03-09 04:10] VITALS: BP 110/59
--- NOTE | 2020-03-09 05:34 | NUR ---
ROUNDS PT RESTING WELL. NO CONCERNS VERBALIZED. KEPT COMFORTABLE. FOR MORE CARE.
[2020-03-09] MEDS: INSULIN R PO SS1 SQ SCH ×3 (05:48→16:44)
[2020-03-09 05:53] LABS: HEMATOCRIT 24.7 % (36-48); MEAN CORPUSCULAR HEMOGLOBIN 27.9 pg (27.0-33.0); MEAN CORPUSCULAR HGB CONC 31.6 g/dL (32.0-36.0); MEAN CORPUSCULAR VOLUME 88.2 fL (79-99); NUCLEATED RED BLOOD CELLS 0.4 % (0.0-0.19); RED BLOOD CELL COUNT(AUTO) 2.8 MIL/uL (4.00-5.50); RED CELL DISTRIBUTION WIDTH 14.6 % (11.0-15.5); WHITE BLOOD COUNT (AUTO) 12.6 K/uL (4.8-10.8)
[2020-03-09 06:08] LABS: CREATININE 0.9 mg/dL (0.5-1.5); MAGNESIUM 1.9 mg/dL (1.80-2.40); POTASSIUM 3.9 mmol/L (3.5-5.1)
[2020-03-09 08:22] VITALS: BP 114/54
[2020-03-09] MEDS: TRAMADOL HCL 50 MG TABLET PO SCH (09:00)
[2020-03-09] MEDS: POLYETHYLENE GLYCOL 3350 17 GM POWD.PACK PO SCH (09:07)
[2020-03-09] MEDS: FAMOTIDINE 20MG TAB 20 MG TAB PO SCH (09:07)
[2020-03-09 10:24] VITALS: BP 131/66
[2020-03-09] MEDS: PSYLLIUM SEED 1 EACH PACKET PO SCH (10:58)
[2020-03-09] MEDS ORDERED: BISACODYL 10 MG SUPP.RECT RC PRN (11:00)
--- NOTE | 2020-03-09 17:45 | NUR ---
[facility] [phone] CALLED TO REPORT PATIENT GOING TO BE DISCHARGE TODAY. Addendum: 03/09/20 at 1834 by NANNETTE CASILLAS RN RN REPORT GIVEN TO NURSE LINDA Montesinos OF [facility]. INFORMED PATIENT TO BE DISCHARGED HOME TODAY AND DR. GREENE ORDERS REGARDING WOUND CARE.
--- NOTE | 2020-03-09 17:50 | NUR ---
[facility] CALLED [phone] AND INFORMED PATIENT IN ROOM 330 AND READY TO BE PICKED UP.
--- NOTE | 2020-03-09 17:55 | NUR ---
DISCHARGE TEACHING PROVIDED TO PATIENT AND PATIENTS DAUGHTER WHO IS AT BEDSIDE AT THIS TIME. INSTRUCTED TO KEEP RLE DRESSING CLEAN AND DRY. INSTRUCTED THAT HOME HEALTH NURSE TO PERFORM RIGHT KNEE DRESSING CHANGES IF DRESSING IS DIRTY OR BLEEDING. INFORMED THAT F/U APPOINTMENT WITH DR. GREENE PENDING TO BE SCHEDULED. INFORMED THAT DR. SCHWARTZ STATES TO CONTINUE ALL HOME MEDICATIONS AND THAT PATIENT SHOULD F/U WITH DR. SCHWARTZ THIS WEEK. REMOVED 20 G IV FROM LEFT HAND, CATHETER TIP INTACT. RIGHT KNEE INCISION CLEAN AND DRY AND TIME OF DISCHARGE.
--- NOTE | 2020-03-09 18:08 | NUR ---
DISCUSSED DC WITH DAUGHTER- REFERRAL AND ACCPTANCE WITH [facility]- ALREADY CURRENT PATIENT . WILL SEE PATIENT IN AM Addendum: 03/09/20 at 1809 by MEMO RENTERIA RN Amended: Links added.
--- NOTE | 2020-03-09 21:00 | NUR ---
EMS HERE TO PICK PT UP. PT EXHIBITS NO DISTRESS NOTED.
== END 2020-03-09 20:59 | disposition home health service (06) | DRG 474 ==
LOC: EDH 10:34 → EDHIP 14:40 → 3AH 19:03
PROVIDERS: ADMIT Internal Medicine; ATTEND Internal Medicine
PROC: 30233N1 Transfusion of Nonautologous Red Blood Cells into Peripheral Vein, Percutaneous Approach (ICD-10-PCS; 2020-03-06)
PROC: 0Y6H0Z3 Detachment at Right Lower Leg, Low, Open Approach (ICD-10-PCS; principal; 2020-03-06 09:53)
DX: T87.43 Infection of amputation stump, right lower extremity (principal); A41.9 Sepsis, unspecified organism; E43 Unspecified severe protein-calorie malnutrition; E11.52 Type 2 diabetes mellitus with diabetic peripheral angiopathy with gangrene; N17.9 Acute kidney failure, unspecified; L97.419 Non-pressure chronic ulcer of right heel and midfoot with unspecified severity; M86.8X6 Other osteomyelitis, lower leg; E11.69 Type 2 diabetes mellitus with other specified complication; E11.621 Type 2 diabetes mellitus with foot ulcer; L97.519 Non-pressure chronic ulcer of other part of right foot with unspecified severity; E11.65 Type 2 diabetes mellitus with hyperglycemia; N18.9 Chronic kidney disease, unspecified; I12.9 Hypertensive chronic kidney disease with stage 1 through stage 4 chronic kidney disease, or unspecified chronic kidney disease; D64.9 Anemia, unspecified; H54.8 Legal blindness, as defined in USA; E11.22 Type 2 diabetes mellitus with diabetic chronic kidney disease; F44.4 Conversion disorder with motor symptom or deficit; Z74.01 Bed confinement status; Z83.3 Family history of diabetes mellitus; H40.9 Unspecified glaucoma; Z88.0 Allergy status to penicillin; Y83.8 Other surgical procedures as the cause of abnormal reaction of the patient, or of later complication, without mention of misadventure at the time of the procedure
CPT/HCPCS: 36415; 36430; 73630; 80048; 80053; 82948; 83605; 83735; 85014; 85018; 85025; 85027; 85610; 85730; 86850; 86900; 86901; 86922; 87040; 88307; 88311; 93925; 97039; G0378; J0330; J0692; J1815; J2001; J2185; J2370; J2704; J3010; J3370; J3490; J7030; P9016